=== PATIENT | female | born 1945 | race Caucasian/White ===

== ENCOUNTER → 2017-09-09 13:45 | Outpatient (CLI) | payer MEDICARE, MEDICAID, SELFPAY ==
--- NOTE | 2017-09-09 14:00 | ECHOD_ITS ---
Reason For Study: SOB, HOCM Procedure This was a 2D Doppler, Color Flow transthoracic echocardiogram. The exam was of adequate technical quality. Exam performed in department. Left Ventricle Normal LV size. Severe concentric left ventricular hypertrophy. Left ventricular systolic function is hyperdynamic. The estimated ejection fraction is 70 %. No regional wall motion abnormalities noted. Right Ventricle Normal RV size. Normal systolic function. Atria The left atrium is moderately enlarged. Normal right atrium. No doppler evidence for ASD. Mitral Valve There is mild mitral annular calcification. Mild diffuse mitral valve thickening. Systolic anterior motion of the mitral valve. Mild (1+) mitral valve insufficiency. Tricuspid Valve Normal tricuspid valve. Trivial tricuspid valve insufficiency. Right ventricular systolic pressure estimated to be 76 mmHg. Aortic Valve Trisinus/trileaflet aortic valve. Mild diffuse aortic valve thickening. Mild focal aortic valve calcification. Pulmonic Valve The pulmonic valve is not well visualized. Mild (1+) pulmonic valve insufficiency. Great Vessels Normal sized aortic root. Pericardium/Pleural No pericardial effusion. MMode/2D Measurements & Calculations LVIDd: 3.4 cm IVSd: 2.8 cm Ao root diam: 2.7 cm LVIDs: 1.6 cm LVPWd: 2.3 cm LA dimension: 6.5 cm RVDd: 3.0 cm FS: 54.1 % LAV(MOD-bp): 138.2 ml LA A4 area: 36.2 cm2 RA A4 area: 17.5 cm2 LAV(MOD-bp) Indexed: 68.3 ml/m2 LAV(MOD-sp2): 115.5 ml LAV(MOD-sp4): 159.4 ml Doppler Measurements & Calculations MV E max semaj: 126.2 cm/sec Lat Peak E' Semaj: 9.2 cm/sec Med Peak E' Semaj: 5.4 cm/sec E/E' lat: 13.8 E/E' med: 23.3 Ao V2 max: 172.4 cm/sec PA V2 max: 92.3 cm/sec TR max semaj: 420.1 cm/sec Ao max P.9 mmHg TR max P.1 mmHg Interpretation Summary Left ventricular systolic function is hyperdynamic. The estimated ejection fraction is 70 %. Severe concentric left ventricular hypertrophy. The left atrium is moderately enlarged. There is mild mitral annular calcification. Mild diffuse mitral valve thickening. Systolic anterior motion of the mitral valve. Mild (1+) mitral valve insufficiency. Trivial tricuspid valve insufficiency. Mild diffuse aortic valve thickening. Mild focal aortic valve calcification. Mild (1+) pulmonic valve insufficiency. Right ventricular systolic pressure estimated to be 76 mmHg. Comment: Color flow doppler cannot exclude a high perimembranous VSD. Ordering Physician: Tal Fuentes Referring Physician: Costa Mcleod M.D. Performed By: Saskia Goldman RDCS
== END ==
PROVIDERS: Family Provider Family Medicine; PCP Family Medicine; Visit Provider Internal Medicine Cardiovascular Disease
DX: I50.22 Chronic systolic (congestive) heart failure (principal); I42.2 Other hypertrophic cardiomyopathy
CPT/HCPCS: 93306

== ENCOUNTER → 2017-10-19 04:00 | Outpatient (REF) | payer MEDICARE, SELFPAY ==
[2017-10-19 08:01] LABS: Anion Gap 6 (5-15); BUN 23 mg/dL (7-18); BUN/Creat Ratio 26.7 RATIO (10-20); Calcium,Total 8.5 mg/dL (8.5-10.1); Chloride 106 mmol/L (98-107); Creatinine, Serum 0.86 mg/dL (0.55-1.02); EST Glomerular Filtration Rate 69 mL/min (>60); Est Glom Filt Rate - Afr Amer 84 mL/min (>60); Glucose 113 mg/dL (74-106); Potassium 4.8 mmol/L (3.5-5.1); Sodium Level 141 mmol/L (136-145)
== END ==
LOC: OLS.WCC 04:00
PROVIDERS: Visit Provider Family Medicine
DX: I50.9 Heart failure, unspecified (principal)
CPT/HCPCS: 36415; 80048; 83880

== ENCOUNTER → 2018-01-11 04:00 | Outpatient (REF) | payer MEDICARE, SELFPAY ==
[2018-01-11 07:15] LABS: Hematocrit 44.1 % (37-47); Hemoglobin 12.8 g/dl (12.0-15.0); Mean Corpuscular Hgb 24.2 pg (27.0-32.0); Mean Corpuscular Volume 83.4 fL (81-99); Mean Platelet Vol. 9.8 fl (6.2-12.0); Platelet Count 222 K/mm3 (150-450); RBC Distribution Width CV 17.5 % (11.6-14.6); RBC Distribution Width SD 53.4 fl (35.1-43.9); Red Blood Count 5.29 M/mm3 (4.2-5.4); White Blood Count 9.1 K/mm3 (4.4-11.0)
[2018-01-11 07:23] LABS: Scan Indicated on CBC? Y/N NO
[2018-01-11 07:41] LABS: BUN 28 mg/dL (7-18); BUN/Creat Ratio 27.2 RATIO (10-20); Calcium,Total 9.2 mg/dL (8.5-10.1); Carbon Dioxide > 45.0 mmol/L (21.0-32.0); Chloride 88 mmol/L (98-107); Creatinine, Serum 1.03 mg/dL (0.55-1.02); EST Glomerular Filtration Rate 56 mL/min (>60); Est Glom Filt Rate - Afr Amer 68 mL/min (>60); Glucose 126 mg/dL (74-106); Potassium 2.9 mmol/L (3.5-5.1); Sodium Level 141 mmol/L (136-145)
[2018-01-11 08:44] LABS: BNP,B-Type NATRIURETIC PEPTIDE > 5000.0 pg/mL (0-100)
== END ==
LOC: OLS.WCC 04:00
PROVIDERS: Visit Provider Family Medicine
DX: I50.9 Heart failure, unspecified (principal); R53.83 Other fatigue
CPT/HCPCS: 36415; 80048; 83880; 85027

== ENCOUNTER 2018-01-12 16:39 | Inpatient (IN) | payer MEDICARE, SELFPAY ==
[2018-01-12] VITALS (9 sets, daily range): BP systolic 107–125; BP diastolic 71–81; PULSE 86–104; RESP 18–32; TEMP 35.7–37; O2SAT 96–99; BMI 33.2; BMI 29.2
--- NOTE | 2018-01-12 16:52 | EKG12_ITS ---
Test Reason : SOB Blood Pressure : / mmHG Vent. Rate : 085 BPM Atrial Rate : 085 BPM P-R Int : 220 ms QRS Dur : 118 ms QT Int : 436 ms P-R-T Axes : 079 -41 118 degrees QTc Int : 518 ms Sinus rhythm with 1st degree A-V block Biatrial enlargement Left axis deviation Left ventricular hypertrophy with QRS widening and repolarization abnormality Prolonged QT Abnormal ECG Confirmed by ANTON CHAVIS ([id number]), proposal editor JOHN PUCKETT ([id number]) on 01/23/2018 6:27:36 PM Referred By: RAMYA Confirmed By:ANTON CHAVIS
--- NOTE | 2018-01-12 16:52 | RAD_ITS ---
STUDY: X-RAY CHEST REASON FOR EXAM: Female, 72 years old. Chest pain and shortness of breath TECHNIQUE: Single AP portable view of the chest. COMPARISON: 10/18/2015 FINDINGS: Cardiac monitoring leads overlie the chest. The lungs are underinflated. There is mild left basilar atelectasis. There is no demonstrated pleural abnormality. There is mild cardiac enlargement. Normal mediastinum and po. Normal visualized pulmonary arteries. Normal visualized aortic arch and descending thoracic aorta. Normal visualized thoracic spine. Normal visualized ribs, clavicles, and shoulders. There is no demonstrated abnormality of the visualized soft tissue structures of the upper abdomen. RAD/Chest 1 View (Portable) IMPRESSION: Low lung volumes with left basilar atelectasis. Cardiomegaly. Electronically Signed: Juancarlos Hi DO at 17:35 EDT Tel , Service support ,
[2018-01-12] MEDS: Aspirin 81 MG TAB.CHEW 324 MG PO (17:27)
[2018-01-12] MEDS: Furosemide 40 MG/4 ML Vial IV (17:32)
--- NOTE | 2018-01-12 19:06 | PCM.HP.STD ---
Problem List (1) CHF exacerbation Status: Acute Qualifiers: Heart failure type: unspecified Qualified Code(s): I50.9 - Heart failure, unspecified (2) HTN (hypertension) Status: Chronic Qualifiers: Hypertension type: essential hypertension Qualified Code(s): I10 - Essential (primary) hypertension (3) Obesity (BMI 30.0-34.9) Status: Chronic (4) Chronic systolic congestive heart failure Status: Chronic (5) CVA (cerebral vascular accident) Status: Chronic Qualifiers: CVA mechanism: unspecified Qualified Code(s): I63.9 - Cerebral infarction, unspecified (6) LBBB (left bundle branch block) Status: Chronic (7) Hypertrophic cardiomyopathy Status: Chronic History of Present Illness Date of Admission: 01/12/18 Chief Complaint: Short of breath, sent per Cardiology for CHF Exacerbation The patient is a 72 y/o F w/ PMHx: Schizophrenia/Bipolar Disorder, Prior CVA L frontal lobe, CHF Unclear Type, Hypertrophic Cardiomyopathy-Obstructive Type, Known LLLB, History of Known Pulmonary Lung Nodule 1.6 cm RUL, Obesity who presents from the [facility] to the [facility] ED on 01/12/18 per recommendation of her Housekeeping Lead, Dr. Fuentes whom she saw earlier in the day with ongoing dyspnea and BL LE edema w/ noted outpatient attempts per Dr. Mcleod to adjust her diuretic which has not been successful. She notes increased fatigue and oxygen needs at facility which she has not required prior. She did have outpatient recent DVT ultrasound studies of her bilateral lower extremities secondary to ongoing severe edema and these were noted to be negative for acute DVT. In the ED work-up included T 96.2, HR 86, BP 125/71, RR 18, 99% on RA, CBC w/ WBC 9.1, Hgb 12.8, Plts 222, BMP w/ K 2.9, Chl 88, CO2 >45, BUN/Cr 28/1.03, glucose 126, BNP >5,000, troponin 0.252, EKG w/ sinus rhythm w/ LVH w/ repolarization changes and QT 518 similar to prior, CXR w/ low lung volumes with left basilar atelectasis. In the emergency room patient administered aspirin, Lasix 40 mg IV ?1, potassium 40 mg 1 p.o. ?1. Past Medical History Past Medical History (Chronic Problems): Chronic Problems (Last Updated 01/12/18 @ 16:49 by NINA Bar) HTN (hypertension) (Chronic) Obesity (BMI 30.0-34.9) (Chronic) Chronic systolic congestive heart failure (Chronic) CVA (cerebral vascular accident) (Chronic) LBBB (left bundle branch block) (Chronic) Hypertrophic cardiomyopathy (Chronic) Medical History: Medical History (Last Updated 01/12/18 @ 16:49 by NINA Bar) Chronic systolic congestive heart failure (Chronic) I50.22 CVA (cerebral vascular accident) (Chronic) I63.9 LBBB (left bundle branch block) (Chronic) I44.7 Hypertrophic cardiomyopathy (Chronic) I42.2 Pulmonary nodule R91.1 RUL Schizophrenia F20.9 Allergies No Known Allergies Allergy (Verified 01/12/18 16:41) Home Medications: Ambulatory Orders Medication Instructions Recorded Aspirin E.C. [Ecotrin] 81 mg PO DAILY@0800 #30 tab 01/09/15 asenapine 5 mg sublingual tablet 5 mg SUBLINGUAL QHS tab 08/26/17 metoprolol tartrate 100 mg tablet 100 mg PO BID 08/26/17 verapamil 40 mg tablet 60 mg PO TID tab 08/26/17 Albuterol Aerosols [Ventolin 2.5 mg INHALATION BID PRN PRN 01/12/18 Aerosols] Asenapine Maleate [Saphris] 5 mg SL QHS 01/12/18 furosemide 40 mg tablet 80 mg PO DAILY tab 01/12/18 metolazone 2.5 mg tablet 2.5 mg PO QODAY 01/12/18 potassium chloride ER 20 mEq 20 meq PO DAILY 01/12/18 tablet,extended release(part/cryst) spironolactone 25 mg tablet 25 mg PO DAILY 01/12/18 Surgical History: Surgical History (Last Reviewed 01/12/18 @ 15:36 by Ester Grossman) History of tonsillectomy Z98.890, Z90.89 Surgical History: tonsillectomy Psychiatric History: Anxiety, Depression, Schizophrenia 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 Denies: Chills, Fever HEENT: Denies: Head Aches, Sinus Congestion, Sinus Drainage Cardiovascular: Reports: Orthopnea. Denies: Chest Pain, Palpitations Respiratory: Reports: Shortness of breath upon exertion. Denies: Cough, Shortness of breath at rest, Sputum production Gastrointestinal: Denies: Abdominal Pain, Nausea, Vomiting Genitourinary: Denies: Dysuria Musculoskeletal: Denies: Joint Pain, Joint Tenderness Skin: Reports: Skin Changes. Denies: Rash, Wounds Neurological: Denies: Numbness, Tingling, Focal weakness Psychiatric: Reports: Anxiety, Depression. Denies: Homicidal Ideations, Suicidal Ideations Hematologic/ Lymphatic: Denies: Easy Bruising, Easy Bleeding VTE Information - Inpt Only VTE Present on Admission: No VTE Mechan Device Prophylaxis: SCD's VTE Pharm Prophylaxis ordered?: Yes Patient Problems: Active and Suspected Problems (Last Updated 01/12/18 @ 16:49 by NINA Bar) CHF exacerbation (Acute) Subjective: Seated upright in the ED bed, no acute distress, denies any current chest discomfort or market dyspnea. Objective: Physical Examination: General: awake, alert, oriented x 3 including self, place, recent events and cooperative, seated upright in bed in no apparent distress. Skin: normal color, turgor, no icterus, cyanosis except noted bilateral lower extremity chronic venous skin changes. HEENT: AT/NC, EOMI, PERRLA, MMM, no carotid bruits, + JVD noted. Lungs: Diminished bilaterally, greater bases, mild rales, mild effort, no wheezing. Heart: Regular rate and rhythm; no gallop, rub audible, HSM present. Abdomen: soft, NTTP, ND, normal BS, no HSM. Extremities: no cyanosis, clubbing, BL LE foot to proximal knee 2+ edema, TTP. Neurological: patient awake, alert, oriented x 3; cognitive function baseline intact; does have notable psychiatric diseases; pupils equally reactive to light and accomodation; cranial nerves II-XII grossly normal, moving all 4 extremities, no focal deficits, strength moderately globally decreased secondary to acute presentation. Psychiatric: affect appears mildly flat, no acute evidence of depressive or anxiety feelings. - Physical Exam Vital Signs Temp Pulse Resp BP Pulse Ox 96.2 F L 89 20 H 121/81 H 97 01/12/18 16:41 01/12/18 18:23 01/12/18 18:23 01/12/18 18:23 01/12/18 18:23 Oxygen Flow Rate (L/min) 3 Oxygen Delivery Method Nasal Cannula Weight: 212 lb 1.355 oz Body Mass Index (BMI) 33.2 Laboratory Tests Past 24 Hrs 01/12/18 17:23 Troponin I 0.252 H Assessment/Plan All Active Problems (Last Updated 01/12/18 @ 16:49 by NINA Bar) CHF exacerbation (Acute) TARAH (acute kidney injury) (Resolved) The patient is a 72 y/o F w/ PMHx: Schizophrenia/Bipolar Disorder, Prior CVA L frontal lobe, CHF Unclear Type, Hypertrophic Cardiomyopathy-Obstructive Type, Known LLLB, History of Known Pulmonary Lung Nodule 1.6 cm RUL, Obesity who presents from the [facility] to the [facility] ED on 01/12/18 per recommendation of her Housekeeping Lead, Dr. Fuentes whom she saw earlier in the day with ongoing dyspnea and BL LE edema w/ noted outpatient attempts per Dr. Mcleod to adjust her diuretic which has not been successful. (1) Acute Decompensated CHF, Unclear Type w/ Hypertrophic Cardiomyopathy-Obstructive Type w/ Elevated Cardiac Troponin: CXR w/ low lung volumes with left basilar atelectasis. Patient administered IV lasix in the ED, will admit to PCU, maintain on cardiac telemetry obtain cardiac enzyme series, obtain serial EKGs, continue IV lasix diuresis w/ 40 mg BID, recent outpatient DVT BL LE studies, monitor I/Os, maintain on intake restriction, continue medical therapy w/ asa, verapamil, spironolactone, metolazone. Not on ACEI or statin. Will obtain TSH and magnesium level. Most recent ECHO noted 2015 w/ findings consistent with hypertrophic cardia myopathy, EF 65%, LVOT dynamic gradient 7 mill per second, severe hypertrophy of the right ventricle, mildly enlarged LA, systolic anterior motion of mitral valve, mild to moderate MV insufficiency, no indication of cardiac tamponade, trivial pericardial effusion, possible right to left shunt through possible VSD under the aortic valve, intracavitary gradient appears the same, possible small VSD located just under aortic valve with evidence of right to left shunting. Repeat echo ordered. Cardiology consulted, pending. PRN morphine to decrease afterload, continue oxygen supplementation, if necessary will position w/ upright position with legs off bed to decrease preload. In the ED patient administered aspirin, Lasix 40 mg IV ?1 and potassium 40 mg 1 p.o. ?1. (2) Hypokalemia: Admission K+ 2.9, given supplementation in the ED, repeat BMP in AM. Mag pending. (2) Schizophrenia/Bipolar Disorder: Maintain on home regimen saphris. Per records and prior visit has been resistant to treatment. (3) Prior CVA L frontal lobe: Maintain on asa, not on statin, continue BP regimen, mild hyperglycemia, pending HgBA1c. (4) History of Known Pulmonary Lung Nodule: 2017 CT chest w/ 1.6 cm RUL. (5) Obesity: Weight loss and lifestyle changes encouraged. (6) Hyperglycemia: Admission glucose 126, HgBA1c requested. (7) DVT Prophylaxis: SCDs, lovenox. (8) CODE status: Discussed CODE status at length including difference between FULL code, DNR-CCA and DNR-CC status. Patient does have guardian in place, reviewed SNF paperwork and confirmed DNR-CCA, no intubation status. Advanced Care Planning Face to Face Time: 18 minutes. Code Visit Inpatient E&M: 73866 Init Hosp L3 Procedures: 97492 Advncd Care Plan 30 Min
--- NOTE | 2018-01-12 19:18 | HP.PCM_ITS ---
Problem List (1) CHF exacerbation Status: Acute Qualifiers: Heart failure type: unspecified Qualified Code(s): I50.9 - Heart failure, unspecified (2) HTN (hypertension) Status: Chronic Qualifiers: Hypertension type: essential hypertension Qualified Code(s): I10 - Essential (primary) hypertension (3) Obesity (BMI 30.0-34.9) Status: Chronic (4) Chronic systolic congestive heart failure Status: Chronic (5) CVA (cerebral vascular accident) Status: Chronic Qualifiers: CVA mechanism: unspecified Qualified Code(s): I63.9 - Cerebral infarction, unspecified (6) LBBB (left bundle branch block) Status: Chronic (7) Hypertrophic cardiomyopathy Status: Chronic History of Present Illness Date of Admission: 01/12/18 Chief Complaint: Short of breath, sent per Cardiology for CHF Exacerbation The patient is a 72 y/o F w/ PMHx: Schizophrenia/Bipolar Disorder, Prior CVA L frontal lobe, CHF Unclear Type, Hypertrophic Cardiomyopathy-Obstructive Type, Known LLLB, History of Known Pulmonary Lung Nodule 1.6 cm RUL, Obesity who presents from the [facility] to the [facility] ED on 01/12/18 per recommendation of her Embossing Unit Operator, Dr. Fuentes whom she saw earlier in the day with ongoing dyspnea and BL LE edema w/ noted outpatient attempts per Dr. Mcleod to adjust her diuretic which has not been successful. She notes increased fatigue and oxygen needs at facility which she has not required prior. She did have outpatient recent DVT ultrasound studies of her bilateral lower extremities secondary to ongoing severe edema and these were noted to be negative for acute DVT. In the ED work-up included T 96.2, HR 86, BP 125/71, RR 18, 99% on RA, CBC w/ WBC 9.1, Hgb 12.8, Plts 222, BMP w/ K 2.9, Chl 88, CO2 >45 , BUN/Cr 28/1.03, glucose 126, BNP >5,000, troponin 0.252, EKG w/ sinus rhythm w / LVH w/ repolarization changes and QT 518 similar to prior, CXR w/ low lung volumes with left basilar atelectasis. In the emergency room patient administered aspirin, Lasix 40 mg IV ?1, potassium 40 mg 1 p.o. ?1. Past Medical History Past Medical History (Chronic Problems): Chronic Problems (Last Updated 01/12/18 @ 16:49 by NINA Bar) HTN (hypertension) (Chronic) Obesity (BMI 30.0-34.9) (Chronic) Chronic systolic congestive heart failure (Chronic) CVA (cerebral vascular accident) (Chronic) LBBB (left bundle branch block) (Chronic) Hypertrophic cardiomyopathy (Chronic) Medical History: Medical History (Last Updated 01/12/18 @ 16:49 by NINA Bar) Chronic systolic congestive heart failure (Chronic) I50.22 CVA (cerebral vascular accident) (Chronic) I63.9 LBBB (left bundle branch block) (Chronic) I44.7 Hypertrophic cardiomyopathy (Chronic) I42.2 Pulmonary nodule R91.1 RUL Schizophrenia F20.9 Allergies No Known Allergies Allergy (Verified 01/12/18 16:41) Home Medications: Ambulatory Orders Medication Instructions Recorded Aspirin E.C. [Ecotrin] 81 mg PO DAILY@0800 #30 tab 01/09/15 asenapine 5 mg sublingual tablet 5 mg SUBLINGUAL QHS tab 08/26/17 metoprolol tartrate 100 mg tablet 100 mg PO BID 08/26/17 verapamil 40 mg tablet 60 mg PO TID tab 08/26/17 Albuterol Aerosols [Ventolin 2.5 mg INHALATION BID PRN PRN 01/12/18 Aerosols] Asenapine Maleate [Saphris] 5 mg SL QHS 01/12/18 furosemide 40 mg tablet 80 mg PO DAILY tab 01/12/18 metolazone 2.5 mg tablet 2.5 mg PO QODAY 01/12/18 potassium chloride ER 20 mEq 20 meq PO DAILY 01/12/18 tablet,extended release(part/cryst) spironolactone 25 mg tablet 25 mg PO DAILY 01/12/18 Surgical History: Surgical History (Last Reviewed 01/12/18 @ 15:36 by Ester Grossman) History of tonsillectomy Z98.890, Z90.89 Surgical History: tonsillectomy Psychiatric History: Anxiety, Depression, Schizophrenia 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 Denies: Chills, Fever HEENT: Denies: Head Aches, Sinus Congestion, Sinus Drainage Cardiovascular: Reports: Orthopnea. Denies: Chest Pain, Palpitations Respiratory: Reports: Shortness of breath upon exertion. Denies: Cough, Shortness of breath at rest, Sputum production Gastrointestinal: Denies: Abdominal Pain, Nausea, Vomiting Genitourinary: Denies: Dysuria Musculoskeletal: Denies: Joint Pain, Joint Tenderness Skin: Reports: Skin Changes. Denies: Rash, Wounds Neurological: Denies: Numbness, Tingling, Focal weakness Psychiatric: Reports: Anxiety, Depression. Denies: Homicidal Ideations, Suicidal Ideations Hematologic/ Lymphatic: Denies: Easy Bruising, Easy Bleeding VTE Information - Inpt Only VTE Present on Admission: No VTE Mechan Device Prophylaxis: SCD's VTE Pharm Prophylaxis ordered?: Yes Patient Problems: Active and Suspected Problems (Last Updated 01/12/18 @ 16:49 by NINA Bar) CHF exacerbation (Acute) Subjective: Seated upright in the ED bed, no acute distress, denies any current chest discomfort or market dyspnea. Objective: Physical Examination: General: awake, alert, oriented x 3 including self, place, recent events and cooperative, seated upright in bed in no apparent distress. Skin: normal color, turgor, no icterus, cyanosis except noted bilateral lower extremity chronic venous skin changes. HEENT: AT/NC, EOMI, PERRLA, MMM, no carotid bruits, + JVD noted. Lungs: Diminished bilaterally, greater bases, mild rales, mild effort, no wheezing. Heart: Regular rate and rhythm; no gallop, rub audible, HSM present. Abdomen: soft, NTTP, ND, normal BS, no HSM. Extremities: no cyanosis, clubbing, BL LE foot to proximal knee 2+ edema, TTP. Neurological: patient awake, alert, oriented x 3; cognitive function baseline intact; does have notable psychiatric diseases; pupils equally reactive to light and accomodation; cranial nerves II-XII grossly normal, moving all 4 extremities, no focal deficits, strength moderately globally decreased secondary to acute presentation. Psychiatric: affect appears mildly flat, no acute evidence of depressive or anxiety feelings. - Physical Exam Vital Signs Temp Pulse Resp BP Pulse Ox 96.2 F L 89 20 H 121/81 H 97 01/12/18 16:41 01/12/18 18:23 01/12/18 18:23 01/12/18 18:23 01/12/18 18:23 Oxygen Flow Rate (L/min) 3 Oxygen Delivery Method Nasal Cannula Weight: 212 lb 1.355 oz Body Mass Index (BMI) 33.2 Laboratory Tests Past 24 Hrs 01/12/18 17:23 Troponin I 0.252 H Assessment/Plan All Active Problems (Last Updated 01/12/18 @ 16:49 by NINA Bar) CHF exacerbation (Acute) TARAH (acute kidney injury) (Resolved) The patient is a 72 y/o F w/ PMHx: Schizophrenia/Bipolar Disorder, Prior CVA L frontal lobe, CHF Unclear Type, Hypertrophic Cardiomyopathy-Obstructive Type, Known LLLB, History of Known Pulmonary Lung Nodule 1.6 cm RUL, Obesity who presents from the [facility] to the [facility] ED on 01/12/18 per recommendation of her Embossing Unit Operator, Dr. Fuentes whom she saw earlier in the day with ongoing dyspnea and BL LE edema w/ noted outpatient attempts per Dr. Mcleod to adjust her diuretic which has not been successful. (1) Acute Decompensated CHF, Unclear Type w/ Hypertrophic Cardiomyopathy- Obstructive Type w/ Elevated Cardiac Troponin: CXR w/ low lung volumes with left basilar atelectasis. Patient administered IV lasix in the ED, will admit to PCU, maintain on cardiac telemetry obtain cardiac enzyme series, obtain serial EKGs, continue IV lasix diuresis w/ 40 mg BID, recent outpatient DVT BL LE studies, monitor I/Os, maintain on intake restriction, continue medical therapy w/ asa, verapamil, spironolactone, metolazone. Not on ACEI or statin. Will obtain TSH and magnesium level. Most recent ECHO noted 2015 w/ findings consistent with hypertrophic cardia myopathy, EF 65%, LVOT dynamic gradient 7 mill per second, severe hypertrophy of the right ventricle, mildly enlarged LA, systolic anterior motion of mitral valve, mild to moderate MV insufficiency, no indication of cardiac tamponade, trivial pericardial effusion, possible right to left shunt through possible VSD under the aortic valve, intracavitary gradient appears the same, possible small VSD located just under aortic valve with evidence of right to left shunting. Repeat echo ordered. Cardiology consulted, pending. PRN morphine to decrease afterload, continue oxygen supplementation, if necessary will position w/ upright position with legs off bed to decrease preload. In the ED patient administered aspirin, Lasix 40 mg IV ?1 and potassium 40 mg 1 p.o. ?1. (2) Hypokalemia: Admission K+ 2.9, given supplementation in the ED, repeat BMP in AM. Mag pending. (2) Schizophrenia/Bipolar Disorder: Maintain on home regimen saphris. Per records and prior visit has been resistant to treatment. (3) Prior CVA L frontal lobe: Maintain on asa, not on statin, continue BP regimen, mild hyperglycemia, pending HgBA1c. (4) History of Known Pulmonary Lung Nodule: 2017 CT chest w/ 1.6 cm RUL. (5) Obesity: Weight loss and lifestyle changes encouraged. (6) Hyperglycemia: Admission glucose 126, HgBA1c requested. (7) DVT Prophylaxis: SCDs, lovenox. (8) CODE status: Discussed CODE status at length including difference between FULL code, DNR-CCA and DNR-CC status. Patient does have guardian in place, reviewed SNF paperwork and confirmed DNR-CCA, no intubation status. Advanced Care Planning Face to Face Time: 18 minutes. Code Visit Inpatient E&M: 73482 Init Hosp L3 Procedures: 77721 Advncd Care Plan 30 Min
--- NOTE | 2018-01-12 19:54 | ED.VISSUMM ---
- ER Visit Summary Date of Service: 01/12/18 Chief Complaint: CHF History of Present Illness: The patient is a [address] Costa Mcleod and Dr. Fuentes. She is a poor informant. Looking at the custodial notes it appears as though the patient is been being diuresed over the course of weeks there and this has been unsuccessful. Patient reports that she has a cough is productive yellow sputum without any blood. She denies any fever, chills, or chest pain. I am unable to get any other reliable information from her. Reviewing the custodial notes shows that the patient typically was on 20 mg of Lasix every morning and 40 mg every afternoon. On December 23 this was increased to 40 every morning and 80 every afternoon. On January 02 she had spironolactone 25 mg every morning added. On January 06 she had Zaroxolyn 2.5 mg daily added. Physical Examination: Vitals: 6.2, 120/71, 86, 18, 99% on room air which is not hypoxic. General: Well-nourished and well-developed. Head: Normocephalic atraumatic. Neck: Supple, no lymphadenopathy. No JVD. Nontender. Cardiovascular: Regular rate and rhythm. 3 out of 6 systolic murmur. Respiratory: No respiratory distress. Clear to auscultation bilaterally. Poor respiratory effort. Abdominal: Soft, nontender, nondistended, normal bowel sounds. No guarding, rebound, or peritoneal signs. Back: Nontender. Extremities: Nontender, 3+ pitting edema lower extremes bilaterally. Skin: Normal color, no rash. Neurologic: Alert and oriented ?3. Cranial nerves II through XII are intact. Normal strength and sensation. Psych: Normal affect. Test Results: EKG is sinus at 85. LVH with repolarization changes. QTc is 518. CBC is normal. Chem-7 is marked potassium 2.9, chloride of 88, CO2 greater than 45, BUN 28, creatinine 1.03, glucose 126. Troponin is 0.252. PT HATCHERY HELPER was greater than 5000. Patient had bilateral lower extreme Dopplers January 10 that were negative. Chest x-ray shows cardiomegaly and atelectasis. Emergency Department Course and Treatment: Patient was given K-Dur p.o., aspirin p.o., and 40 mg of Lasix IV. Treatment Plan: Patient was discussed with Dr. Mcgee and Dr. Miner. She will be admitted to the hospital for further relation and treatment. Disposition: Admitted in serious condition. Impression: 1. CHF. 2. Indeterminate troponin. This note was generated with [employer] MXR dictation software. It may contain incorrect words, spelling, and punctuation that were not noted in review of the chart prior to signing ED Disposition - Plan for ED Patient: Chief Complaint: Shortness of Breath Referrals: Costa Mcleod MD [Primary Care Provider] -
--- NOTE | 2018-01-12 19:57 | ED.DCSUM_ITS ---
- ER Visit Summary Date of Service: 01/12/18 Chief Complaint: CHF History of Present Illness: The patient is a [address] Costa Mcleod and Dr. Fuentes. She is a poor informant. Looking at the alf notes it appears as though the patient is been being diuresed over the course of weeks there and this has been unsuccessful. Patient reports that she has a cough is productive yellow sputum without any blood. She denies any fever, chills, or chest pain. I am unable to get any other reliable information from her. Reviewing the alf notes shows that the patient typically was on 20 mg of Lasix every morning and 40 mg every afternoon. On December 23 this was increased to 40 every morning and 80 every afternoon. On January 02 she had spironolactone 25 mg every morning added. On January 06 she had Zaroxolyn 2.5 mg daily added. Physical Examination: Vitals: 6.2, 120/71, 86, 18, 99% on room air which is not hypoxic. General: Well-nourished and well-developed. Head: Normocephalic atraumatic. Neck: Supple, no lymphadenopathy. No JVD. Nontender. Cardiovascular: Regular rate and rhythm. 3 out of 6 systolic murmur. Respiratory: No respiratory distress. Clear to auscultation bilaterally. Poor respiratory effort. Abdominal: Soft, nontender, nondistended, normal bowel sounds. No guarding, rebound, or peritoneal signs. Back: Nontender. Extremities: Nontender, 3+ pitting edema lower extremes bilaterally. Skin: Normal color, no rash. Neurologic: Alert and oriented ?3. Cranial nerves II through XII are intact. Normal strength and sensation. Psych: Normal affect. Test Results: EKG is sinus at 85. LVH with repolarization changes. QTc is 518. CBC is normal. Chem-7 is marked potassium 2.9, chloride of 88, CO2 greater than 45, BUN 28, creatinine 1.03, glucose 126. Troponin is 0.252. PT SEPTIC PUMP TRUCK DRIVER was greater than 5000. Patient had bilateral lower extreme Dopplers January 10 that were negative. Chest x-ray shows cardiomegaly and atelectasis. Emergency Department Course and Treatment: Patient was given K-Dur p.o., aspirin p.o., and 40 mg of Lasix IV. Treatment Plan: Patient was discussed with Dr. Mcgee and Dr. Miner. She will be admitted to the hospital for further relation and treatment. Disposition: Admitted in serious condition. Impression: 1. CHF. 2. Indeterminate troponin. This note was generated with Test[employer] dictation software. It may contain incorrect words, spelling, and punctuation that were not noted in review of the chart prior to signing ED Disposition - Plan for ED Patient: Chief Complaint: Shortness of Breath Referrals: Costa Mcleod MD [Primary Care Provider] -
--- NOTE | 2018-01-12 20:24 | ECHOD_ITS ---
Version 2 Reason For Study: CHF Procedure This was a 2D Doppler, Color Flow transthoracic echocardiogram. Exam performed portable in patient room. Left Ventricle Severe concentric left ventricular hypertrophy. The estimated ejection fraction is 75 %. Stage 2 diastolic dysfunction. No regional wall motion abnormalities noted. Right Ventricle Normal size and thickness. Normal systolic function. Atria The left atrium is severely enlarged. The right atrium is mildly enlarged. Normal atrial septum. Mitral Valve Mild focal mitral valve thickening. Systolic anterior motion of the mitral valve. Mild-Moderate (1- 2+) posteriorly directed mitral valve insufficiency. Tricuspid Valve Normal tricuspid valve. Trivial tricuspid valve insufficiency. Right ventricular systolic pressure estimated to be 109 mmHg. Aortic Valve Trisinus/trileaflet aortic valve. Pulmonic Valve Normal pulmonic valve. Trivial pulmonic valve insufficiency. Great Vessels Normal aortic root. Normal arch. Normal inferior vena cava. Inferior vena cava collapse with sniff. Pericardium/Pleural No pericardial effusion. MMode/2D Measurements & Calculations LVIDd: 3.6 cm IVSd: 1.9 cm Ao root diam: 2.8 cm LVIDs: 2.7 cm LVPWd: 1.9 cm LA dimension: 5.2 cm RVDd: 3.0 cm FS: 25.1 % LAV(MOD-bp): 130.1 ml RVOT diam: 1.8 cm LA A4 area: 33.9 cm2 LAV(MOD-bp) Indexed: 66.4 ml/m2 LAV(MOD-sp2): 123.5 ml LAV(MOD-sp4): 137.5 ml RA A4 area: 23.1 cm2 Doppler Measurements & Calculations Lat Peak E' Semaj: 7.9 cm/sec Med Peak E' Semaj: 5.7 cm/sec Ao V2 max: 537.8 cm/sec Ao max P.0 mmHg Ao V2 mean: 396.4 cm/sec Ao mean P.3 mmHg Ao V2 VTI: 121.9 cm PA V2 max: 101.2 cm/sec TR max semaj: 522.5 cm/sec TR max P.2 mmHg Interpretation Summary Severe concentric left ventricular hypertrophy. The estimated ejection fraction is 75 %. Stage 2 diastolic dysfunction. The left atrium is severely enlarged. Mild-Moderate (1-2+) posteriorly directed mitral valve insufficiency. Systolic anterior motion of the mitral valve. Trivial tricuspid valve insufficiency. Cannot exclude high perimembranous VSD. Right ventricular systolic pressure estimated to be 109 mmHg. Compared to previous echo dated 09/09/2017, no appreciable changes noted. RVSP was 76 at that time, and has now increased to 109 mm Hg. Ordering Physician: Vandana Miner Referring Physician: AZRA PUCKETT Performed By: Karly Mota RDCS, RVT
[2018-01-12 21:07] LABS: Thyroid Stim Hormone (TSH) 0.65 uIU/mL (0.358-3.74)
[2018-01-12 21:20] LABS: Hemoglobin A1c 7.1 % (4.2-6.3)
[2018-01-12] MEDS: Verapamil 120 MG Tablet 60 MG PO (22:43)
[2018-01-12] MEDS: guaiFENesin 10 ML UDC (200MG/10ML) PO (22:43)
[2018-01-12] MEDS: Famotidine 20 MG Tablet PO (22:44)
[2018-01-12] MEDS: Metoprolol Tartrate 100 MG Tablet PO (22:44)
[2018-01-13] VITALS (15 sets, daily range): BP systolic 100–126; BP diastolic 56–77; PULSE 78–94; RESP 16–20; TEMP 36.2–37.2; O2SAT 94–97
[2018-01-13 03:28] LABS: Hematocrit 44.1 % (37-47); Mean Corp Hgb Conc 29.5 g/gl (32-36); Mean Corpuscular Hgb 24.6 pg (27.0-32.0); Mean Corpuscular Volume 83.4 fL (81-99); Mean Platelet Vol. 10.4 fl (6.2-12.0); Platelet Count 225 K/mm3 (150-450); RBC Distribution Width SD 54.6 fl (35.1-43.9); Red Blood Count 5.29 M/mm3 (4.2-5.4); White Blood Count 10.5 K/mm3 (4.4-11.0)
[2018-01-13 03:29] LABS: Scan Indicated on CBC? Y/N NO
[2018-01-13 03:49] LABS: BUN 30 mg/dL (7-18); BUN/Creat Ratio 29.1 RATIO (10-20); Calcium,Total 9.3 mg/dL (8.5-10.1); Carbon Dioxide > 45.0 mmol/L (21.0-32.0); Chloride 85 mmol/L (98-107); Cholesterol 126 mg/dL (200); Creatinine, Serum 1.03 mg/dL (0.55-1.02); EST Glomerular Filtration Rate 56 mL/min (>60); Est Glom Filt Rate - Afr Amer 68 mL/min (>60); Estimated Creatinine Clearance 49.42 ml/min; Glucose 141 mg/dL (74-106); High Density Lipoprotein 39 mg/dL; Potassium 3.4 mmol/L (3.5-5.1); Sodium Level 139 mmol/L (136-145); Triglycerides 164 mg/dL; Very Low Density Lipoprotein 33 mg/dL (5-40)
[2018-01-13] MEDS: Verapamil 120 MG Tablet 60 MG PO ×3 (05:54→22:24)
--- NOTE | 2018-01-13 06:34 | PN_ITS ---
Patient Problems: Active and Suspected Problems (Last Updated 01/12/18 @ 16:49 by NINA Bar) CHF exacerbation (Acute) Subjective: Patient is a 72-year-old female with a past medical history of schizophrenia/ bipolar disorder, prior left frontal lobe CVA, congestive heart failure, hypertrophic cardiomyopathy-obstructive type, right upper lobe pulmonary lung nodule measuring 1.6 cm, known left middle branch block and obesity who was sent to the [facility] ED from [facility] on 01/12/2018 with progressive shortness of breath and bilateral lower extremity edema. She had been requiring oxygen at the [facility] and she had not previously been on oxygen. Recent venous ultrasounds of the lower extremities was negative for DVT. Vital signs in the emergency room were temperature 96.2, heart rate 86, blood pressure 125/71, respiratory rate 18 and she was 99% saturated on room air. Potassium was low at 3.4 and the serum bicarb was greater than 45. BUN was 30 and the creatinine was 1.03. Creatinine over the past 12 months has ranged from 0.86-1.02. Glucose was 141 and hemoglobin A1c was 7.1. BNP on 01/11/2018 was greater than 5000. Initial troponin was 0.252 and the second troponin was 0.245. TSH was normal at 0.65. The chest x-ray showed a poor inspiratory effort with possible left basilar pneumonia versus atelectasis, ? R perihilar infiltrate vs CHF, and increased vascular markings. EKG showed normal sinus rhythm with left ventricular hypertrophy and a prolonged QT interval at 518 ms. She was given ASA, a potassium supplement and Lasix 40 mg IV in the ER admitted to a monitored bed on the progressive care unit. She is on Lasix, metolazone and Spironolactone as an outpatient. She has had only 150 cc urine overnight despite the Lasix 40 mg. Current vital signs are temp 98.3, pulse rate 89, blood pressure 109/65, respiratory rate 18 and she is 96% saturated on a 3 L nasal cannula. She was 99 % on room air at admission. An ABG done on a 4 L nasal cannula shows a pH of 7.53, PCO2 of 72 and a PO2 of 76. The fourth troponin is increased at 0.33. BNP is 4484. Hemoglobin A1c is 7.1%. - Physical Exam General: Alert, Oriented x3, Cooperative, No apparent distress, - - speaks slowly and softly. HEENT: Atraumatic, PERRLA, EOMI, Normocephalic Oral: No Gingival or Mucosal Lesions/ Ulcerations, Dry Mucosa Neck: Supple, No JVD, Trachea Midline Lungs: Clear to auscultation, No rhonchi, No wheeze, No rales Cardiovascular: Regular rate, Regular Rhythm, No Ectopic Activity, Murmur - systolic MM at the LLSB and the LVOT, 3/6 with no thrill, it is holosystolic. No MM at the second RICS., No rub noted, No Gallop Abdomen: Bowel Sounds Present, Soft, Non Tender, Non-Distended Extremities: No clubbing, No cyanosis, No edema Skin: No rashes, No breakdown Neurological: Cranial nerves II-XII grossly intact, Neuro grossly intact Psych/Mental Status: Normal Affect, Appropriate Vital Signs Temp Pulse Resp BP Pulse Ox 97.2 F L 85 18 108/77 96 01/13/18 02:40 01/13/18 03:00 01/13/18 02:40 01/13/18 02:40 01/13/18 02:40 Oxygen Flow Rate (L/min) 4 Oxygen Delivery Method Nasal Cannula Weight: 186 lb 11.704 oz Body Mass Index (BMI) 29.2 Intake and Output for Last 24 Hours 01/11/18 01/12/18 01/13/18 23:59 23:59 23:59 Output Total 150 / 150 Balance -150 / -150 Laboratory Tests Past 24 Hrs 01/13/18 01/13/18 01/13/18 03:15 03:15 03:15 WBC 10.5 RBC 5.29 Hgb 13.0 Hct 44.1 MCV 83.4 MCH 24.6 L MCHC 29.5 L RDW 18.0 H RDW Differential 54.6 H Plt Count 225 MPV 10.4 Sodium 139 Potassium 3.4 L Chloride 85 L Carbon Dioxide > 45.0 H* Anion Gap TNP BUN 30 H Creatinine 1.03 H Estim Creat Clear Calc 49.42 Est GFR (MDRD) Af Amer 68 Est GFR (MDRD) Non-Af 56 L BUN/Creatinine Ratio 29.1 H Glucose 141 H Calcium 9.3 Troponin I 0.245 H Triglycerides 164 Cholesterol 126 LDL Cholesterol 54 VLDL Cholesterol 33 HDL Cholesterol 39 L Medical Necessity - Tobacco Use Smoking Status: Never smoker Tobacco Use: Non-smoker Assessment/Plan All Active Problems (Last Updated 01/12/18 @ 16:49 by NINA Bar) CHF exacerbation (Acute) TARAH (acute kidney injury) (Resolved) Impressions 1. hx of hypertrophic CM - being aggressively diuresed recently with Lasix, spironolactone and Metolazone. C/O SOB. The serum bicarb is > 45 and the ABG shows a PH of 7.53 and a PCO2 of 73. I suspect the metabolic alkalosis is due to IV volume depletion. The CXR is indeterminate because she did not take a good inspiration. I am concerned about the alkalosis and wonder if the perceived SOB is related to hypoventilation and in an attempt to maintain the PH WNL? If she is dry I would think the failure would be worse because she has severe LVH and a non-compliant ventricle and with decreased volume the ventricle may not perform as well. Will defer to Dr. Mcgee's expertise and continue the diuresis for now. This pt was seen independently and in conjunction with John Hanson and we have discussed the plan of care. I agree with his PE. Will recheck the Lab in the AM and possibly a ABG. Await the results of the ECHO. Code Visit Inpatient E&M: 03958 Subs Hosp L2
[2018-01-13 07:05] LABS: AST(SGOT) 37 U/L (15-37); Alanine Aminotransfer ALT/SGPT 25 U/L (13-56); Albumin, Serum 2.9 g/dL (3.2-5.0); Alkaline Phosphatase 87 U/L (45-117); Bilirubin, Direct 0.26 mg/dL (0.00-0.30); Globulin 3.8 g/dL (2.2-4.2); Protein, Total 6.7 g/dL (6.4-8.2)
[2018-01-13] MEDS: Aspirin E.C. 81 MG Tablet PO (09:15)
[2018-01-13] MEDS: Spironolactone 25 MG Tablet PO (09:15)
--- NOTE | 2018-01-13 09:15 | CASEMGMT ---
UPDATES FAXED TO MARCUS AT [facility]. PER MARCUS, PATIENT CAN RETURN TO FACILITY PRIOR TO PRE-CERT BEING OBTAINED. WILL UPDATE MARCUS IF D/C WILL POSSIBLY BE OVER THE WEEKEND. GREEN SHEET ON PATIENT'S CHART. TIMO SERRANO, CLINICAL SUPPORT
[2018-01-13] MEDS: Metoprolol Tartrate 100 MG Tablet PO ×2 (09:16→22:24)
[2018-01-13] MEDS: Furosemide 40 MG/4 ML Vial IV ×2 (09:16→17:54)
[2018-01-13] MEDS: Famotidine 20 MG Tablet PO ×2 (09:16→22:24)
[2018-01-13] MEDS: Enoxaparin 40 MG/0.4 ML Syringe SC (09:16)
--- NOTE | 2018-01-13 10:49 | CON.PCM_ITS ---
Problem List (1) HTN (hypertension) Status: Chronic Qualifiers: Hypertension type: essential hypertension Qualified Code(s): I10 - Essential (primary) hypertension (2) CHF exacerbation Status: Acute Qualifiers: Heart failure type: unspecified Qualified Code(s): I50.9 - Heart failure, unspecified (3) Chronic systolic congestive heart failure Status: Chronic (4) LBBB (left bundle branch block) Status: Chronic (5) Hypertrophic cardiomyopathy Status: Chronic Reason for Consult Date of Consultation: 01/13/18 Reason for Consultation: Irregular heartbeat, shortness of breath, productive cough, lower extremity edema, History of Present Illness: The patient is a 72 year old F, patient of Dr. Fuentes's with an underlying hypertrophic cardiomyopathy, bipolar disorder and schizophrenia. She currently resides at [facility]. An echocardiogram in 2016 demonstrated severe LV concentric hypertrophy, systolic function at the lower limits of normal, and an estimated EF of 50% and dynamic obstruction of the LV outflow tract with concomitant mild 1+ mitral regurgitation. Patient underwent a left and right heart catheterization at [facility] on 10/18/15 in the face of new left bundle branch block and possible ST elevation myocardial infarction. At that time the patient was found to have minimal irregularities of her coronary tree, LVH was present with an EF around 65-70%. No intervention was recommended or performed. Over the last several days the patient has complained of productive cough, shortness of breath, but no fevers. She also complains of an irregular heartbeat and when asked about anticoagulation therapy she declines that she is on it or has been on it. She also complains of lower extremity edema. As part of her workup she underwent troponin analysis which initially showed 0.25 which increased to 0.33. She is resting comfortably currently. Chest x-ray demonstrates possible patchy infiltrates in the right mediastinal area which is worse than previous chest x-rays. No pleural effusions. Cardiomegaly present. Apparently the patient has had worsening lower extremity edema and has been attempted to be managed as an outpatient by Kaye Arroyo and Dr. Fuentes. She has had escalating doses of diuretic therapy, the addition of every other day she was admitted for IV diuresis. Metolazone without much effect. [] Past Medical History Allergies/Adverse Reactions: Allergies No Known Allergies Allergy (Verified 05/31/18 16:41) Home Medications: Ambulatory Orders Medication Instructions Recorded Aspirin E.C. [Ecotrin] 81 mg PO DAILY@0800 #30 tab 01/09/15 asenapine 5 mg sublingual tablet 5 mg SUBLINGUAL QHS tab 08/26/17 metoprolol tartrate 100 mg tablet 100 mg PO BID 08/26/17 verapamil 40 mg tablet 60 mg PO TID tab 08/26/17 Albuterol Aerosols [Ventolin 2.5 mg INHALATION BID PRN PRN 01/12/18 Aerosols] Asenapine Maleate [Saphris] 5 mg SL QHS 01/12/18 furosemide 40 mg tablet 80 mg PO DAILY tab 01/12/18 metolazone 2.5 mg tablet 2.5 mg PO QODAY 01/12/18 potassium chloride ER 20 mEq 20 meq PO DAILY 01/12/18 tablet,extended release(part/cryst) spironolactone 25 mg tablet 25 mg PO DAILY 01/12/18 Past Medical History (Chronic Problems): Chronic Problems (Last Updated 01/12/18 @ 16:49 by NINA Bar) HTN (hypertension) (Chronic) Obesity (BMI 30.0-34.9) (Chronic) Chronic systolic congestive heart failure (Chronic) CVA (cerebral vascular accident) (Chronic) LBBB (left bundle branch block) (Chronic) Hypertrophic cardiomyopathy (Chronic) Surgical History: tonsillectomy Psychiatric History: Anxiety, Depression, Schizophrenia INTERNAL COMBUSTION ENGINEER History: No pertinent INTERNAL COMBUSTION ENGINEER history - *Family History Maternal History Items: Heart Disease Paternal History Items: Heart Disease Lives: [facility] Smoking Status: Never smoker Tobacco Use: Non-smoker Alcohol: None Drugs: None Review of Systems - Review of Systems General: Denies: Fever, Night Sweats, Fatigue Cardiovascular: Reports: Shortness of Breath at Rest. Denies: Chest Discomfort , Shortness of Breath, Orthopnea, PND, Peripheral Edema, Palpitations, Lightheadedness, Dizziness, Near Syncope, Syncope Respiratory: Denies: Cough, Sputum Production, Hemoptysis Gastrointestinal: Denies: Hematemesis, Hematochezia, Melena Genitourinary: Denies: Dysuria, Hematuria Skin: Denies: Rash Subjectve: Patient resting comfortably in a chair, no 24 hour events. Telemetry showed normal sinus rhythm no ectopy. Objective: Vital Signs Temp Pulse Resp BP Pulse Ox 98.3 F 92 18 109/65 96 01/13/18 09:04 01/13/18 09:16 01/13/18 09:04 01/13/18 09:04 01/13/18 09:04 Oxygen Flow Rate (L/min) 2 Oxygen Delivery Method Nasal Cannula Weight: 186 lb 11.704 oz Body Mass Index (BMI) 29.2 Intake and Output for Last 24 Hours 01/11/18 01/12/18 01/13/18 23:59 23:59 23:59 Output Total 150 / 150 Balance -150 / -150 General: Awake, Alert, Oriented x 3 HEENT: PERRL, EOMI, Sclera Non Icteric Neck: Supple, Good ROM, No Lymph Node Enlargement Lungs: Clear to auscultation Cardiovascular: Regular Rhythm, Normal S1, Normal S2, No Rubs, No Gallops Murmur Murmur: Grade 3/6, Holosystolic, LLSB Vascular: No Carotid Bruits, Normal Femoral Pulses, Normal Radial Pulses, Normal Dorsalis Pedal Pulse, Normal Posterior Tibial Pulses Abdomen: Bowel Sounds Present, Soft, Non Tender, No HSM, No Organomegaly Extremities: No Cyanosis, No Clubbing, No edema Neurological: No Focal Motor or Sensory Deficit 01/13/18 03:15: WBC 10.5, RBC 5.29, Hgb 13.0, Hct 44.1, MCV 83.4, MCH 24.6 L, MCHC 29.5 L, RDW 18.0 H, RDW Differential 54.6 H, Plt Count 225, MPV 10.4 01/13/18 03:15: Sodium 139, Potassium 3.4 L, Chloride 85 L, Carbon Dioxide > 45.0 H*, Anion Gap TNP, BUN 30 H, Creatinine 1.03 H, Est GFR (MDRD) Af Amer 68, Est GFR (MDRD) Non-Af 56 L, BUN/Creatinine Ratio 29.1 H, Glucose 141 H, Calcium 9.3, Triglycerides 164, Cholesterol 126, LDL Cholesterol 54, VLDL Cholesterol 33 , HDL Cholesterol 39 L 01/13/18 03:15: Troponin I 0.245 H 01/13/18 05:15: Troponin I 0.287 H 01/13/18 05:15: Magnesium 2.0, Total Bilirubin 1.30 H, Direct Bilirubin 0.26 01/13/18 05:15: B-Natriuretic Peptide 4484.7 H 01/13/18 06:04: pH 7.53 H, Bicarbonate Actual 60.2 H, POC Total CO2 50, Base Excess 30 H, O2 Saturation 95, ABG pCO2 72.8 H*, ABG pO2 76, Michael Test POS 01/13/18 09:24: Troponin I 0.330 H Rhythm: Telemetry negative. EKG: EKG showed normal sinus rhythm with LVH and repolarization abnormality. No acute changes. ECHO: Pending Stress Test: Cardiac Cath: PCI: CT Surgery: Holter monitor: EPS: PPM: CXR: Chest CT Scan: Assessment/Plan 1. Hypertrophic cardiomyopathy: The patient has hypertrophic cardiomyopathy as diagnosed by previous echocardiogram with mildly reduced LV function. The patient presents with shortness of breath, productive cough, and palpitations. She is on both beta-everette and verapamil therapy given her LVH. In addition she appears to have dynamic LV outflow tract obstruction with probable mitral regurgitation as evidenced by physical exam. Her troponins are indeterminate which may be a consequence of her severe LVH. Would recommend a repeat 2D echo with Doppler to determine if she has any worsening of her LV function. She had a previous catheterization [facility] in 2015 which showed minimal nonobstructive coronary artery disease with intact LV function, and relatively normal right-sided pressures. The patient's echocardiogram shows significant LV dysfunction or deterioration since last time, I have a low threshold for repeat left and right heart catheterization. It is most likely the patient will always have indeterminate troponins given her severe LVH going forward. In the meantime recommend continuing her verapamil, Lopressor, and spironolactone. She was also started on every other day metolazone to assist with diuretic therapy. I recommend continuing IV Lasix 40 mg twice daily until the patient has achieved her dry weight. Recommend replacement of her potassium to keep above 4.0, and keep magnesium of 2.0. Continue daily potassium supplementation of 20 mEq p.o. daily. At this point I would not recommend repeat stress testing. 2. Coronary artery disease: The patient had minimal nonobstructive coronary disease by catheterization in October 2015 at an outside facility. Would not recommend repeat catheterization at this time. 3. Hyperlipidemia: Her LDL and HDL cholesterol are at goal. Continue present management. 4. Thank you very much for the opportunity to participate in the cardiac care of the patient. Consultation time took place between 930 and 10 AM. Code Visit Inpatient E&M: 71006 Init Hosp L2
[2018-01-13 12:01] LABS: Bedside Glucose 159 mg/dL (70-110)
--- NOTE | 2018-01-13 13:09 | CASEMGMT ---
Call to Yelena at [facility]. Informed Yelena that Pt could possibly D/C over the weekend. Verified legal guardian information for Pt and weekend fax number for facility. If necessary, Yelena will obtain any authorization required for skilled services at [facility]. Bethany Daley, Clinical Support
--- NOTE | 2018-01-13 13:46 | CHAPLAIN ---
Type of Pastoral Visit _x__ Initial Visit ___ Follow-up Visit ___ On-call Visit ___ General Patient Visit ___ Spiritual Assessment ___ Family Conference ___ Bereavement ___ Rapid Response ___ Code Blue ___ Other (describe below) Pastoral Care Referral From _x__ Patient ___ Family ___ Nurse ___ Physician ___ Wood Cut Engraver ___ Customer Advocate ___ Other (describe below) Sacrament/Intervention ___ Active listening ___ Anointing ___ Orthodox ___ Bereavement ___ Communion ___ Gisselle exploration ___ ___ Life review _x__ Prayer ___ Reconciliation ___ Sacrament of Sick _x__ Supportive presence ___ Wedding ___ Other (describe below) Pastoral Comments
--- NOTE | 2018-01-13 14:21 | PCM.PROGNOTE ---
Patient Problems: Active and Suspected Problems (Last Updated 01/12/18 @ 16:49 by NINA Bar) CHF exacerbation (Acute) Subjective: Pt is resting comfortably in bed, she conitnues to complain of the productive cough and mild dyspnea that has led to her being here that has not improved over the last week and a half. She has had increasing doses of diuretics recently with little increase of urine output and little improvement in edema/cough. She currently denies CP, dizziness, LH, palp. Edema is unchanged. - Physical Exam General: Alert, Oriented x3, Cooperative HEENT: Atraumatic, PERRLA, EOMI, Normocephalic Neck: Supple, No JVD, Negative Carotid Bruits Lungs: Rales - faint rales at the bases Cardiovascular: Regular rate, No murmurs Abdomen: Bowel Sounds Present, Soft, Non Tender Extremities: Capillary Refill Less than 3 Seconds, Edema - 2+ pitting edema below knees Skin: No rashes, No breakdown Musculoskeletal: No Tenderness to Palpation of Joints or Extremities Neurological: Cranial nerves II-XII grossly intact Psych/Mental Status: Flat Affect Vital Signs Temp Pulse Resp BP Pulse Ox 98.3 F 92 18 109/65 97 01/13/18 09:04 01/13/18 09:16 01/13/18 09:04 01/13/18 09:04 01/13/18 10:30 Oxygen Flow Rate (L/min) 3 Oxygen Delivery Method Nasal Cannula Weight: 84.7 kg Body Mass Index (BMI) 29.2 Intake and Output for Last 24 Hours 01/11/18 01/12/18 01/13/18 23:59 23:59 23:59 Intake Total 350 / 350 Output Total 250 / 250 Balance 100 / 100 Laboratory Tests Past 24 Hrs 01/13/18 01/13/18 01/13/18 03:15 03:15 03:15 WBC 10.5 RBC 5.29 Hgb 13.0 Hct 44.1 MCV 83.4 MCH 24.6 L MCHC 29.5 L RDW 18.0 H RDW Differential 54.6 H Plt Count 225 MPV 10.4 Specimen Type Sample Site pH Bicarbonate Actual POC Total CO2 Base Excess O2 Saturation ABG pCO2 ABG pO2 Michael Test O2 Delivery Device Liter Flow Vent Mode Blood Gas Notified Whom Blood Gas Notified Time Sodium 139 Potassium 3.4 L Chloride 85 L Carbon Dioxide > 45.0 H* Anion Gap TNP BUN 30 H Creatinine 1.03 H Estim Creat Clear Calc 49.42 Est GFR (MDRD) Af Amer 68 Est GFR (MDRD) Non-Af 56 L BUN/Creatinine Ratio 29.1 H Glucose 141 H Calcium 9.3 Magnesium Total Bilirubin Direct Bilirubin AST ALT Alkaline Phosphatase Troponin I 0.245 H B-Natriuretic Peptide Total Protein Albumin Globulin Triglycerides 164 Cholesterol 126 LDL Cholesterol 54 VLDL Cholesterol 33 HDL Cholesterol 39 L 01/13/18 01/13/18 01/13/18 05:15 05:15 05:15 WBC RBC Hgb Hct MCV MCH MCHC RDW RDW Differential Plt Count MPV Specimen Type Sample Site pH Bicarbonate Actual POC Total CO2 Base Excess O2 Saturation ABG pCO2 ABG pO2 Michael Test O2 Delivery Device Liter Flow Vent Mode Blood Gas Notified Whom Blood Gas Notified Time Sodium Potassium Chloride Carbon Dioxide Anion Gap BUN Creatinine Estim Creat Clear Calc Est GFR (MDRD) Af Amer Est GFR (MDRD) Non-Af BUN/Creatinine Ratio Glucose Calcium Magnesium 2.0 Total Bilirubin 1.30 H Direct Bilirubin 0.26 AST 37 ALT 25 Alkaline Phosphatase 87 Troponin I 0.287 H B-Natriuretic Peptide 4484.7 H Total Protein 6.7 Albumin 2.9 L Globulin 3.8 Triglycerides Cholesterol LDL Cholesterol VLDL Cholesterol HDL Cholesterol 01/13/18 01/13/18 06:04 09:24 WBC RBC Hgb Hct MCV MCH MCHC RDW RDW Differential Plt Count MPV Specimen Type ART Sample Site LEFT RADIAL pH 7.53 H Bicarbonate Actual 60.2 H POC Total CO2 50 Base Excess 30 H O2 Saturation 95 ABG pCO2 72.8 H* ABG pO2 76 Michael Test POS O2 Delivery Device NC Liter Flow 4.0 Vent Mode O2 Blood Gas Notified Whom [facility] Blood Gas Notified Time 604 Sodium Potassium Chloride Carbon Dioxide Anion Gap BUN Creatinine Estim Creat Clear Calc Est GFR (MDRD) Af Amer Est GFR (MDRD) Non-Af BUN/Creatinine Ratio Glucose Calcium Magnesium Total Bilirubin Direct Bilirubin AST ALT Alkaline Phosphatase Troponin I 0.330 H B-Natriuretic Peptide Total Protein Albumin Globulin Triglycerides Cholesterol LDL Cholesterol VLDL Cholesterol HDL Cholesterol POC Glucose 01/13/18 11:56 POC Glucose 159 H Medical Necessity - Tobacco Use Smoking Status: Never smoker Tobacco Use: Non-smoker Assessment/Plan All Active Problems (Last Updated 01/12/18 @ 16:49 by NINA Bar) CHF exacerbation (Acute) TARAH (acute kidney injury) (Resolved) 1. Acute diastolic CHF exacerbation with hypertrophic cardiomyopathy - cardiology following, planning to continue diuresis with lasix/metolazone/aldactone. I am concerned that with escalating diuretics and CO2 retention, alkalosis on ABG that she is developing a contraction alkalosis. Her legs continue to appear edematous and she was started on O2 in the last week which is new for her. BNP is however Highly elevated. Echo shows EF 75%, Stage 2 diastolic dysfxn, 1-2+ MVI, RVSP 39 mmHg. Cardiology does not recommend repeat stress, may need repeat cath. 2. Indeterminate troponin with hx CAD - mild increase in trop, cardiology following as above. 3. Schizoaffective disorder - home meds. flat affect. 4. Hx CVA - l frontal lobe - on asa, no statin. 5. Hyperglycemia - a1c c/w T2DM, start SSI, plan to start orals at [place]. 6. Known pulmonary nodule 7. Hypokalemia - repleted, check am labs. 8. HLD - at goal DVT ppx: lovenox DC planning: return to [facility] This patient was seen by John Hanson PA-C under the supervision of Doctor Pedroza.
--- NOTE | 2018-01-13 14:31 | PN_ITS ---
Patient Problems: Active and Suspected Problems (Last Updated 01/12/18 @ 16:49 by NINA Bar) CHF exacerbation (Acute) Subjective: Pt is resting comfortably in bed, she conitnues to complain of the productive cough and mild dyspnea that has led to her being here that has not improved over the last week and a half. She has had increasing doses of diuretics recently with little increase of urine output and little improvement in edema/ cough. She currently denies CP, dizziness, LH, palp. Edema is unchanged. - Physical Exam General: Alert, Oriented x3, Cooperative HEENT: Atraumatic, PERRLA, EOMI, Normocephalic Neck: Supple, No JVD, Negative Carotid Bruits Lungs: Rales - faint rales at the bases Cardiovascular: Regular rate, No murmurs Abdomen: Bowel Sounds Present, Soft, Non Tender Extremities: Capillary Refill Less than 3 Seconds, Edema - 2+ pitting edema below knees Skin: No rashes, No breakdown Musculoskeletal: No Tenderness to Palpation of Joints or Extremities Neurological: Cranial nerves II-XII grossly intact Psych/Mental Status: Flat Affect Vital Signs Temp Pulse Resp BP Pulse Ox 98.3 F 92 18 109/65 97 01/13/18 09:04 01/13/18 09:16 01/13/18 09:04 01/13/18 09:04 01/13/18 10:30 Oxygen Flow Rate (L/min) 3 Oxygen Delivery Method Nasal Cannula Weight: 84.7 kg Body Mass Index (BMI) 29.2 Intake and Output for Last 24 Hours 01/11/18 01/12/18 01/13/18 23:59 23:59 23:59 Intake Total 350 / 350 Output Total 250 / 250 Balance 100 / 100 Laboratory Tests Past 24 Hrs 01/13/18 01/13/18 01/13/18 03:15 03:15 03:15 WBC 10.5 RBC 5.29 Hgb 13.0 Hct 44.1 MCV 83.4 MCH 24.6 L MCHC 29.5 L RDW 18.0 H RDW Differential 54.6 H Plt Count 225 MPV 10.4 Specimen Type Sample Site pH Bicarbonate Actual POC Total CO2 Base Excess O2 Saturation ABG pCO2 ABG pO2 Michael Test O2 Delivery Device Liter Flow Vent Mode Blood Gas Notified Whom Blood Gas Notified Time Sodium 139 Potassium 3.4 L Chloride 85 L Carbon Dioxide > 45.0 H* Anion Gap TNP BUN 30 H Creatinine 1.03 H Estim Creat Clear Calc 49.42 Est GFR (MDRD) Af Amer 68 Est GFR (MDRD) Non-Af 56 L BUN/Creatinine Ratio 29.1 H Glucose 141 H Calcium 9.3 Magnesium Total Bilirubin Direct Bilirubin AST ALT Alkaline Phosphatase Troponin I 0.245 H B-Natriuretic Peptide Total Protein Albumin Globulin Triglycerides 164 Cholesterol 126 LDL Cholesterol 54 VLDL Cholesterol 33 HDL Cholesterol 39 L 01/13/18 01/13/18 01/13/18 05:15 05:15 05:15 WBC RBC Hgb Hct MCV MCH MCHC RDW RDW Differential Plt Count MPV Specimen Type Sample Site pH Bicarbonate Actual POC Total CO2 Base Excess O2 Saturation ABG pCO2 ABG pO2 Michael Test O2 Delivery Device Liter Flow Vent Mode Blood Gas Notified Whom Blood Gas Notified Time Sodium Potassium Chloride Carbon Dioxide Anion Gap BUN Creatinine Estim Creat Clear Calc Est GFR (MDRD) Af Amer Est GFR (MDRD) Non-Af BUN/Creatinine Ratio Glucose Calcium Magnesium 2.0 Total Bilirubin 1.30 H Direct Bilirubin 0.26 AST 37 ALT 25 Alkaline Phosphatase 87 Troponin I 0.287 H B-Natriuretic Peptide 4484.7 H Total Protein 6.7 Albumin 2.9 L Globulin 3.8 Triglycerides Cholesterol LDL Cholesterol VLDL Cholesterol HDL Cholesterol 01/13/18 01/13/18 06:04 09:24 WBC RBC Hgb Hct MCV MCH MCHC RDW RDW Differential Plt Count MPV Specimen Type ART Sample Site LEFT RADIAL pH 7.53 H Bicarbonate Actual 60.2 H POC Total CO2 50 Base Excess 30 H O2 Saturation 95 ABG pCO2 72.8 H* ABG pO2 76 Michael Test POS O2 Delivery Device NC Liter Flow 4.0 Vent Mode O2 Blood Gas Notified Whom [facility] Blood Gas Notified Time 604 Sodium Potassium Chloride Carbon Dioxide Anion Gap BUN Creatinine Estim Creat Clear Calc Est GFR (MDRD) Af Amer Est GFR (MDRD) Non-Af BUN/Creatinine Ratio Glucose Calcium Magnesium Total Bilirubin Direct Bilirubin AST ALT Alkaline Phosphatase Troponin I 0.330 H B-Natriuretic Peptide Total Protein Albumin Globulin Triglycerides Cholesterol LDL Cholesterol VLDL Cholesterol HDL Cholesterol POC Glucose 01/13/18 11:56 POC Glucose 159 H Medical Necessity - Tobacco Use Smoking Status: Never smoker Tobacco Use: Non-smoker Assessment/Plan All Active Problems (Last Updated 01/12/18 @ 16:49 by NINA Bar) CHF exacerbation (Acute) TARAH (acute kidney injury) (Resolved) 1. Acute diastolic CHF exacerbation with hypertrophic cardiomyopathy - cardiology following, planning to continue diuresis with lasix/metolazone/ aldactone. I am concerned that with escalating diuretics and CO2 retention, alkalosis on ABG that she is developing a contraction alkalosis. Her legs continue to appear edematous and she was started on O2 in the last week which is new for her. BNP is however Highly elevated. Echo shows EF 75%, Stage 2 diastolic dysfxn, 1-2+ MVI, RVSP 39 mmHg. Cardiology does not recommend repeat stress, may need repeat cath. 2. Indeterminate troponin with hx CAD - mild increase in trop, cardiology following as above. 3. Schizoaffective disorder - home meds. flat affect. 4. Hx CVA - l frontal lobe - on asa, no statin. 5. Hyperglycemia - a1c c/w T2DM, start SSI, plan to start orals at [place]. 6. Known pulmonary nodule 7. Hypokalemia - repleted, check am labs. 8. HLD - at goal DVT ppx: lovenox DC planning: return to [facility] This patient was seen by John Hanson PA-C under the supervision of Doctor Pedroza.
[2018-01-13 15:40] LABS: Bedside Glucose 178 mg/dL (70-110)
--- NOTE | 2018-01-13 16:27 | CASEMGMT ---
Patient is okay for d/c back to [facility] over weekend if ready. Green sheet on chart. Plan: [facility] DONALDSON
[2018-01-13] MEDS: ASENAPINE MALEATE 5 MG TAB.SUBL SL (22:24)
[2018-01-13 23:10] LABS: Bedside Glucose 140 mg/dL (70-110)
[2018-01-14] VITALS (13 sets, daily range): BP systolic 105–124; BP diastolic 65–75; PULSE 68–89; RESP 18–20; TEMP 36.6–37.2; O2SAT 96–100
[2018-01-14] MEDS: Verapamil 120 MG Tablet 60 MG PO ×3 (06:39→21:32)
[2018-01-14 06:51] LABS: Bedside Glucose 133 mg/dL (70-110)
[2018-01-14 07:56] LABS: BUN 32 mg/dL (7-18); BUN/Creat Ratio 27.6 RATIO (10-20); Calcium,Total 9.4 mg/dL (8.5-10.1); Carbon Dioxide > 45.0 mmol/L (21.0-32.0); Chloride 84 mmol/L (98-107); Creatinine, Serum 1.16 mg/dL (0.55-1.02); EST Glomerular Filtration Rate 49 mL/min (>60); Est Glom Filt Rate - Afr Amer 59 mL/min (>60); Estimated Creatinine Clearance 43.88 ml/min; Glucose 122 mg/dL (74-106); Potassium 3.5 mmol/L (3.5-5.1); Sodium Level 139 mmol/L (136-145)
--- NOTE | 2018-01-14 09:03 | PCM.PN.CARD ---
Subjectve: Patient's feels better than prior to her admission. Her shortness of breath has improved. Her lower extremity edema has improved but is still present with some tenderness under her Robert bandages. Echocardiogram yesterday showed severe LVH with hyperdynamic LV function, what appeared to be systolic anterior motion of the mitral leaflet with concomitant posterior mitral regurgitation, and a perimembranous VSD located in the superior portion of her LV with evidence of left to right flow. In addition her pulmonary pressures appear to be greater than 100 consistent with Eisenmenger's complex. Objective: Vital Signs Temp Pulse Resp BP Pulse Ox 98.4 F 81 18 105/65 96 01/14/18 04:00 01/14/18 07:28 01/14/18 04:00 01/14/18 04:00 01/14/18 07:55 Oxygen Flow Rate (L/min) 3 Oxygen Delivery Method Nasal Cannula Weight: 186 lb 11.704 oz Body Mass Index (BMI) 29.2 Intake and Output for Last 24 Hours 01/12/18 01/13/18 01/14/18 23:59 23:59 23:59 Intake Total 700 / 700 150 / 150 Output Total 250 / 250 Balance 450 / 450 150 / 150 General: Awake, Alert, Oriented x 3 HEENT: PERRL, EOMI, Sclera Non Icteric Neck: Supple, Good ROM, No Lymph Node Enlargement Lungs: Clear to auscultation Cardiovascular: Regular Rhythm, Normal S1, Normal S2, No Rubs, No Gallops Murmur Murmur: Grade 3/6, Holosystolic, LLSB Vascular: No Carotid Bruits, Normal Femoral Pulses, Normal Radial Pulses, Normal Dorsalis Pedal Pulse, Normal Posterior Tibial Pulses Abdomen: Bowel Sounds Present, Soft, Non Tender, No HSM, No Organomegaly Extremities: No Cyanosis, No Clubbing, No edema Neurological: No Focal Motor or Sensory Deficit 01/13/18 05:15: B-Natriuretic Peptide 4484.7 H 01/13/18 09:24: Troponin I 0.330 H 01/14/18 06:30: Sodium 139, Potassium 3.5, Chloride 84 L, Carbon Dioxide > 45.0 H*, Anion Gap TNP, BUN 32 H, Creatinine 1.16 H, Est GFR (MDRD) Af Amer 59 L, Est GFR (MDRD) Non-Af 49 L, BUN/Creatinine Ratio 27.6 H, Glucose 122 H, Calcium 9.4 Rhythm: EKG: ECHO: Stress Test: Cardiac Cath: PCI: CT Surgery: Holter monitor: EPS: PPM: CXR: Chest CT Scan: Medical Necessity - Tobacco Use Smoking Status: Never smoker Tobacco Use: Non-smoker Assessment/Plan 1. Hypertrophic cardiomyopathy: The patient has hypertrophic cardiomyopathy as diagnosed by previous echocardiogram with mildly reduced LV function. The patient presents with shortness of breath, productive cough, and palpitations. She is on both beta-everette and verapamil therapy given her LVH. Repeat echocardiogram yesterday showed severe concentric LVH with hyperdynamic LV function with an EF around 75%, palpable systolic anterior motion of the mitral leaflet with associated posteriorly directed mitral regurgitation, and a probable perimembranous VSD with subsequent left to right flow and severe pulmonary hypertension with an RVSP of 109 mmHg, consistent with Eisenmenger's complex. It is most likely the patient will always have indeterminate troponins given her severe LVH going forward. In the meantime recommend continuing her verapamil, Lopressor, and spironolactone. She was also started on every other day metolazone to assist with diuretic therapy. I recommend continuing IV Lasix 40 mg twice daily for 1 more day until the patient has achieved her dry weight, then switch her to Lasix 80 mg p.o. twice daily. Recommend replacement of her potassium to keep above 4.0, and keep magnesium of 2.0. Continue daily potassium supplementation of 20 mEq p.o. daily. Given the patient's severe pulmonary hypertension, and hyperdynamic LV, she is preload dependent, and once her blood pressure begins to dip, I would hold on any further IV diuresis and switch her back to p.o. Lasix. In addition her bicarbonate has increased, suggesting contraction alkalosis with her diuresis. At this point I would not recommend repeat stress testing. Given the patient's severe pulmonary hypertension, she is approaching the point where medical therapy is beginning to fail. This is most likely a consequence of her perimembranous VSD with subsequent severe pulmonary hypertension. In order to better evaluate her VSD, she will require a transesophageal echocardiogram, which given her dyspnea and severe pulmonary hypertension may be somewhat problematic. It does not appear that the patient has had any evaluation for her VSD according to the patient's sister although she was supposed to go down to [facility] several months ago and never did so. This may have been when she was supposed to be evaluated for her VSD. At this point I am unsure whether closure of her VSD and mitral valve repair would be of benefit. Her lower extremity edema may never completely resolved given the severe pulmonary hypertension, and use of verapamil which has a side effect of causing lower extremity edema anyhow. Patient is currently DNR/CCA, and would not recommend transfer to [facility] at this time. 2. Coronary artery disease: The patient had minimal nonobstructive coronary disease by catheterization in October 2015 at an outside facility. Would not recommend repeat catheterization at this time. 3. Hyperlipidemia: Her LDL and HDL cholesterol are at goal. Continue present management. 4. Thank you very much for the opportunity to participate in the cardiac care of the patient. Patient has a very poor prognosis.
[2018-01-14] MEDS: Spironolactone 25 MG Tablet PO (09:57)
[2018-01-14] MEDS: Aspirin E.C. 81 MG Tablet PO (09:57)
[2018-01-14] MEDS: Glucerna Shake 120 ML LIQUID 60 ML PO ×3 (09:57→17:43)
[2018-01-14] MEDS: Furosemide 40 MG/4 ML Vial IV (09:58)
[2018-01-14] MEDS: Metoprolol Tartrate 100 MG Tablet PO ×2 (09:58→21:33)
[2018-01-14] MEDS: Enoxaparin 40 MG/0.4 ML Syringe SC (09:58)
[2018-01-14] MEDS: Famotidine 20 MG Tablet PO ×2 (09:59→21:33)
[2018-01-14] MEDS: Metolazone 2.5 MG Tablet PO (09:59)
[2018-01-14] MEDS: 0.9% NaCl Peripheral Flush Adult/Peds IV (09:59)
--- NOTE | 2018-01-14 10:46 | RAD_ITS ---
STUDY: X-RAY CHEST REASON FOR EXAM: Female, 72 years old. Cough and chest congestion. TECHNIQUE: PA and lateral views of the chest. COMPARISON: January 12, 2018. FINDINGS: Cardiac monitoring leads are present. Lungs are expanded. There is left basilar subsegmental atelectasis. There may be patchy left basilar airspace disease possibly representing pneumonia. There are prominent bronchovascular markings of the right lung base in addition to what may represent interstitial consolidation. There appear to be small pleural effusions. There is mild cardiac enlargement. Normal mediastinum and po. There is prominence of the pulmonary hilar arteries with peripheral pulmonary vascular congestion. There is atherosclerotic calcification of the aortic arch with tortuosity. There is demineralization of the osseous structures. There is increased thoracic kyphosis. Normal visualized ribs, clavicles, and shoulders. There is no demonstrated abnormality of the visualized soft tissue structures of the upper abdomen. RAD/Chest PA and Lateral IMPRESSION: 1. Left basilar airspace consolidation likely representing pneumonia. 2. Cardiomegaly and small pleural effusions. Electronically Signed: Rosalie Mcleod MD at 12:42 EDT , Service support ,
--- NOTE | 2018-01-14 11:02 | CASEMGMT ---
Social Work Note PCU Per conversation with physician patient may benefit from hospice. Physician would like to speak with patient's legal guardian. Reviewed chart and noted patient is a retirement resident at [facility] and that patient's status of having a guardian was confirmed earlier in this stay. Called David at the [facility] and asked for letter of guardianship to be faxed to the hospital so as to be placed in patient's medical record. Hospice would also need this document if patient is signed up for hospice. Received letter of guardianship and this has been placed on patient's chart, to be scanned into record for any future treatments at [facility]. Called patient's legal guardian Kirti Martinez. Discussed that physician would like to meet with guardian to discuss care needs and recommendations. Better will come directly to hospital, anticipate arrival around 1130 today. Updated physician staff. Plan: Return to [facility] for continued care and treatment. Possible addition of hospice pending meeting with guardian today at 1130. Green sheet is on the chart in case patient is discharged back to the nursing facility this weekend. -NALLELY Yin, MEDICAL OFFICE ASSISTANT
[2018-01-14 12:26] LABS: Bedside Glucose 169 mg/dL (70-110)
--- NOTE | 2018-01-14 12:39 | CASEMGMT ---
Social Work Note PCU Per physician legal guardian is agreeable to hospice referral. Spoke with Aisha from [facility] to see which hospice agencies the facility uses. List of options obtained. Met with patient and guardian in the room. Offered several choices: [facility], [facility], [facility] as agencies that [facility] has worked with in the past. Kirti chose [facility]. Discussed with patient that [facility] being called for comfort measures for patient. Patient said yes and then commented that has been losing weight, then just smiled at this telegraphic typewriter mechanic. Called on-call hospice and spoke with Jason parker nurse. Referral given and let Suzy know that patient may be ready to discharge to [facility] tomorrow, and that would want hospice to admit upon return to the [facility]. Suzy will have liaison Jeannine Cotto to arrange a time for discussion and paperwork today. Updated Kirti. Faxed referrals information, order, DNRCC status and guardianship paperwork to confirmed fax at [facility] (fax is [phone]). Updated weekend green sheet to reflect patient entering hospice and need to call hospice nurse when discharge time is known. Updated farmworker fur. Plan: Return to [facility], intermediate level of care, hospice to follow at intermediate. Green Sheet is on the chart to be followed at time of discharge. -NALLELY Yin, TABLET REPAIR
--- NOTE | 2018-01-14 14:56 | PCM.PROGNOTE ---
<John Hanson - Last Filed: 01/14/18 14:56> Patient Problems: Active and Suspected Problems (Last Updated 01/12/18 @ 16:49 by NINA Bar) CHF exacerbation (Acute) Subjective: Pt reports continued productive cough, but overall is less SOB, and has less edema. She remains very weak but has been able to get up to use the bathroom. She denies palp, dizziness, LH. She has no fever or chills. Met with her POA to discuss the terminality of her condition, and she is agreeable to hospice. - Physical Exam General: Alert, Oriented x3, Cooperative HEENT: Atraumatic, PERRLA, EOMI, Normocephalic Neck: Supple, No JVD, Negative Carotid Bruits Lungs: Clear to auscultation, Normal air movement Cardiovascular: Regular rate, No murmurs Abdomen: Bowel Sounds Present, Soft, Non Tender Extremities: Capillary Refill Less than 3 Seconds, Edema - significantly improved, 1+ BL pitting Skin: No rashes, No breakdown Musculoskeletal: No Tenderness to Palpation of Joints or Extremities Neurological: Cranial nerves II-XII grossly intact Psych/Mental Status: Flat Affect Vital Signs Temp Pulse Resp BP Pulse Ox 98.6 F 87 18 113/68 96 01/14/18 09:32 01/14/18 11:08 01/14/18 09:32 01/14/18 09:58 01/14/18 09:32 Oxygen Flow Rate (L/min) 3 Oxygen Delivery Method Nasal Cannula Weight: 84.7 kg Body Mass Index (BMI) 29.2 Intake and Output for Last 24 Hours 01/12/18 01/13/18 01/14/18 23:59 23:59 23:59 Intake Total 700 / 700 690 / 690 Output Total 250 / 250 Balance 450 / 450 690 / 690 Laboratory Tests Past 24 Hrs 01/14/18 06:30 Sodium 139 Potassium 3.5 Chloride 84 L Carbon Dioxide > 45.0 H* Anion Gap TNP BUN 32 H Creatinine 1.16 H Estim Creat Clear Calc 43.88 Est GFR (MDRD) Af Amer 59 L Est GFR (MDRD) Non-Af 49 L BUN/Creatinine Ratio 27.6 H Glucose 122 H Calcium 9.4 POC Glucose 01/14/18 01/14/18 01/13/18 12:20 06:44 22:21 POC Glucose 169 H 133 H 140 H 01/13/18 15:37 POC Glucose 178 H Medical Necessity - Tobacco Use Smoking Status: Never smoker Tobacco Use: Non-smoker Assessment/Plan All Active Problems (Last Updated 01/12/18 @ 16:49 by NINA Bar) CHF exacerbation (Acute) TARAH (acute kidney injury) (Resolved) 1. Acute diastolic CHF exacerbation with hypertrophic cardiomyopathy - improved. CO2 retention, but significant fluid retention. Still crackly lungs but SOB and edema improved. Will transition to PO lasix. -Cardiology notes with echo changes she will continue to have elevated troponins Echo shows severe pulmonary htn - RVSP 109 mmHg up from 76 5 months ago. VSD with left to right flow. 2+ diastolic dysfxn. -Condition is terminal. She is already DNRCCA. -POA is agreeable to hospice. Consult placed. -Repeat CXR showing consolidation, cardiomegaly, small pleural effusions 2. Indeterminate troponin with hx CAD - mild increase in trop, cardiology following as above. 3. Schizoaffective disorder - home meds. flat affect. 4. Hx CVA - l frontal lobe - on asa, no statin. 5. T2DM - start orals at dc. new dx. 6. Known pulmonary nodule 7. Hypokalemia - repleted, check am labs. 8. HLD - at goal DVT ppx: lovenox DC planning: Hospice consult, plan to dc to [facility] on Hospice. This patient was seen by John Hanson PA-C under the supervision of Doctor María Elena <[place] - Last Filed: 01/14/18 16:49> - Physical Exam Vital Signs Temp Pulse Resp BP Pulse Ox 98.6 F 83 18 113/68 96 01/14/18 09:32 01/14/18 15:45 01/14/18 09:32 01/14/18 09:58 01/14/18 09:32 Oxygen Flow Rate (L/min) 3 Oxygen Delivery Method Nasal Cannula Weight: 84.7 kg Body Mass Index (BMI) 29.2 Intake and Output for Last 24 Hours 01/12/18 01/13/18 01/14/18 23:59 23:59 23:59 Intake Total 700 / 700 690 / 690 Output Total 250 / 250 Balance 450 / 450 690 / 690 Laboratory Tests Past 24 Hrs 01/13/18 01/13/18 01/14/18 06:04 06:08 06:30 Specimen Type Cancelled ART Sample Site Cancelled L Radial pH Cancelled 7.53 H Bicarbonate Actual Cancelled 60.2 H POC Total CO2 Cancelled > 50 Base Excess Cancelled > 30 H O2 Saturation Cancelled 95 O2 % Cancelled ABG pCO2 Cancelled 72.8 H* ABG pO2 Cancelled 76 Michael Test Cancelled POS Respiration Rate Cancelled O2 Delivery Device Cancelled Nasal Can Liter Flow Cancelled 4.0 Minute Volume Cancelled Vent Mode Cancelled Tidal Volume Cancelled POC PEEP Cancelled POC Pressure Suppt Cancelled Pressure High Cancelled Pressure Low Cancelled Time High Cancelled Time Low Cancelled EPAP Cancelled IPAP Cancelled Blood Gas Notified Whom Cancelled HOSP MD Blood Gas Notified Time Cancelled 604 Sodium 139 Potassium 3.5 Chloride 84 L Carbon Dioxide > 45.0 H* Anion Gap TNP BUN 32 H Creatinine 1.16 H Estim Creat Clear Calc 43.88 Est GFR (MDRD) Af Amer 59 L Est GFR (MDRD) Non-Af 49 L BUN/Creatinine Ratio 27.6 H Glucose 122 H Calcium 9.4 POC Glucose 01/14/18 01/14/18 01/13/18 12:20 06:44 22:21 POC Glucose 169 H 133 H 140 H Assessment/Plan Patient was seen and examined with physician medical assistant prn John Hanson. I agree with this above interval history, physical examination assessment and plan. Patient was seen and examined. Denies any new complaints, still very short of breath with episodic coughing. Remains on 3 L of oxygen. Vitals reviewed and were stable. Labs review is significant for persistent alkalemia with slightly worse creatinine. Agree with switching from IV Lasix to oral Lasix. Discussed in detail with the legal guardian, is agreeable to hospice consult on account of severe pulmonary hypertension( RVSP 109). Chest x-ray from this morning shows left-sided basilar space consolidation; x-ray showed sided basilar atelectasis, will continue on Lasix therapy, repeat chest x-ray tomorrow morning to see if this improves. Hold off antibiotics for now. Code Visit Inpatient E&M: 99691 Subs Hosp L2
--- NOTE | 2018-01-14 15:05 | PN_ITS ---
<John Hanson - Last Filed: 01/14/18 14:56> Patient Problems: Active and Suspected Problems (Last Updated 01/12/18 @ 16:49 by NINA Bar) CHF exacerbation (Acute) Subjective: Pt reports continued productive cough, but overall is less SOB, and has less edema. She remains very weak but has been able to get up to use the bathroom. She denies palp, dizziness, LH. She has no fever or chills. Met with her POA to discuss the terminality of her condition, and she is agreeable to hospice. - Physical Exam General: Alert, Oriented x3, Cooperative HEENT: Atraumatic, PERRLA, EOMI, Normocephalic Neck: Supple, No JVD, Negative Carotid Bruits Lungs: Clear to auscultation, Normal air movement Cardiovascular: Regular rate, No murmurs Abdomen: Bowel Sounds Present, Soft, Non Tender Extremities: Capillary Refill Less than 3 Seconds, Edema - significantly improved, 1+ BL pitting Skin: No rashes, No breakdown Musculoskeletal: No Tenderness to Palpation of Joints or Extremities Neurological: Cranial nerves II-XII grossly intact Psych/Mental Status: Flat Affect Vital Signs Temp Pulse Resp BP Pulse Ox 98.6 F 87 18 113/68 96 01/14/18 09:32 01/14/18 11:08 01/14/18 09:32 01/14/18 09:58 01/14/18 09:32 Oxygen Flow Rate (L/min) 3 Oxygen Delivery Method Nasal Cannula Weight: 84.7 kg Body Mass Index (BMI) 29.2 Intake and Output for Last 24 Hours 01/12/18 01/13/18 01/14/18 23:59 23:59 23:59 Intake Total 700 / 700 690 / 690 Output Total 250 / 250 Balance 450 / 450 690 / 690 Laboratory Tests Past 24 Hrs 01/14/18 06:30 Sodium 139 Potassium 3.5 Chloride 84 L Carbon Dioxide > 45.0 H* Anion Gap TNP BUN 32 H Creatinine 1.16 H Estim Creat Clear Calc 43.88 Est GFR (MDRD) Af Amer 59 L Est GFR (MDRD) Non-Af 49 L BUN/Creatinine Ratio 27.6 H Glucose 122 H Calcium 9.4 POC Glucose 01/14/18 01/14/18 01/13/18 12:20 06:44 22:21 POC Glucose 169 H 133 H 140 H 01/13/18 15:37 POC Glucose 178 H Medical Necessity - Tobacco Use Smoking Status: Never smoker Tobacco Use: Non-smoker Assessment/Plan All Active Problems (Last Updated 01/12/18 @ 16:49 by NINA Bar) CHF exacerbation (Acute) TARAH (acute kidney injury) (Resolved) 1. Acute diastolic CHF exacerbation with hypertrophic cardiomyopathy - improved. CO2 retention, but significant fluid retention. Still crackly lungs but SOB and edema improved. Will transition to PO lasix. -Cardiology notes with echo changes she will continue to have elevated troponins Echo shows severe pulmonary htn - RVSP 109 mmHg up from 76 5 months ago. VSD with left to right flow. 2+ diastolic dysfxn. -Condition is terminal. She is already DNRCCA. -POA is agreeable to hospice. Consult placed. -Repeat CXR showing consolidation, cardiomegaly, small pleural effusions 2. Indeterminate troponin with hx CAD - mild increase in trop, cardiology following as above. 3. Schizoaffective disorder - home meds. flat affect. 4. Hx CVA - l frontal lobe - on asa, no statin. 5. T2DM - start orals at dc. new dx. 6. Known pulmonary nodule 7. Hypokalemia - repleted, check am labs. 8. HLD - at goal DVT ppx: lovenox DC planning: Hospice consult, plan to dc to [facility] on Hospice. This patient was seen by John Hanson PA-C under the supervision of Doctor María Elena <[place]ía [place] - Last Filed: 01/14/18 16:49> - Physical Exam Vital Signs Temp Pulse Resp BP Pulse Ox 98.6 F 83 18 113/68 96 01/14/18 09:32 01/14/18 15:45 01/14/18 09:32 01/14/18 09:58 01/14/18 09:32 Oxygen Flow Rate (L/min) 3 Oxygen Delivery Method Nasal Cannula Weight: 84.7 kg Body Mass Index (BMI) 29.2 Intake and Output for Last 24 Hours 01/12/18 01/13/18 01/14/18 23:59 23:59 23:59 Intake Total 700 / 700 690 / 690 Output Total 250 / 250 Balance 450 / 450 690 / 690 Laboratory Tests Past 24 Hrs 01/13/18 01/13/18 01/14/18 06:04 06:08 06:30 Specimen Type Cancelled ART Sample Site Cancelled L Radial pH Cancelled 7.53 H Bicarbonate Actual Cancelled 60.2 H POC Total CO2 Cancelled > 50 Base Excess Cancelled > 30 H O2 Saturation Cancelled 95 O2 % Cancelled ABG pCO2 Cancelled 72.8 H* ABG pO2 Cancelled 76 Michael Test Cancelled POS Respiration Rate Cancelled O2 Delivery Device Cancelled Nasal Can Liter Flow Cancelled 4.0 Minute Volume Cancelled Vent Mode Cancelled Tidal Volume Cancelled POC PEEP Cancelled POC Pressure Suppt Cancelled Pressure High Cancelled Pressure Low Cancelled Time High Cancelled Time Low Cancelled EPAP Cancelled IPAP Cancelled Blood Gas Notified Whom Cancelled HOSP MD Blood Gas Notified Time Cancelled 604 Sodium 139 Potassium 3.5 Chloride 84 L Carbon Dioxide > 45.0 H* Anion Gap TNP BUN 32 H Creatinine 1.16 H Estim Creat Clear Calc 43.88 Est GFR (MDRD) Af Amer 59 L Est GFR (MDRD) Non-Af 49 L BUN/Creatinine Ratio 27.6 H Glucose 122 H Calcium 9.4 POC Glucose 01/14/18 01/14/18 01/13/18 12:20 06:44 22:21 POC Glucose 169 H 133 H 140 H Assessment/Plan Patient was seen and examined with physician educational program assistant John Hanson. I agree with this above interval history, physical examination assessment and plan. Patient was seen and examined. Denies any new complaints, still very short of breath with episodic coughing. Remains on 3 L of oxygen. Vitals reviewed and were stable. Labs review is significant for persistent alkalemia with slightly worse creatinine. Agree with switching from IV Lasix to oral Lasix. Discussed in detail with the legal guardian, is agreeable to hospice consult on account of severe pulmonary hypertension( RVSP 109). Chest x-ray from this morning shows left-sided basilar space consolidation; x- ray showed sided basilar atelectasis, will continue on Lasix therapy, repeat chest x-ray tomorrow morning to see if this improves. Hold off antibiotics for now. Code Visit Inpatient E&M: [id number] Subs Hosp L2
[2018-01-14 15:46] LABS: Allen Test POS; Base Excess > 30 mmol/L (-2 to +2); Bicarbonate 60.2 mmol/L (22-26); Blood Gas Specimen Type ART; O2 Delivery Device Nasal Can; PO2 76 mmHG (75-100); SITE L Radial; SO2 95 % (95-99); Time Given 604; Total Carbon Dioxide > 50 mmol/L; pCO2 72.8 mmHg (35-45); pH 7.53 (7.35-7.45)
[2018-01-14] MEDS: Furosemide 80 MG Tablet PO (17:43)
[2018-01-14 18:40] LABS: Bedside Glucose 254 mg/dL (70-110)
[2018-01-14] MEDS: ASENAPINE MALEATE 5 MG TAB.SUBL SL (21:34)
[2018-01-14] MEDS: guaiFENesin 10 ML UDC (200MG/10ML) PO (21:35)
[2018-01-14 22:41] LABS: Bedside Glucose 148 mg/dL (70-110)
[2018-01-15] VITALS (8 sets, daily range): BP systolic 107–142; BP diastolic 72–73; PULSE 76–81; RESP 17–20; TEMP 36.8; O2SAT 92–94
--- NOTE | 2018-01-15 04:40 | RAD_ITS ---
STUDY: X-RAY CHEST REASON FOR EXAM: Female, 72 years old. Chest pain. TECHNIQUE: Single AP portable view of the chest. COMPARISON: January 14, 2018. FINDINGS: Cardiac monitoring leads are present. The lungs are underexpanded. There is right upper lobe airspace disease possibly representing pneumonia. There is left basilar subsegmental atelectasis. There is a nodular area at the left lung base measuring approximately 11 mm in greatest dimension. There is no demonstrated pleural abnormality. There is moderate cardiac enlargement. Normal mediastinum and po. Normal visualized pulmonary arteries. There is atherosclerotic calcification of the aortic arch with tortuosity. There is demineralization of the osseous structures. Normal visualized ribs, clavicles, and shoulders. There is no demonstrated abnormality of the visualized soft tissue structures of the upper abdomen. RAD/Chest 1 View (Portable) IMPRESSION: 1. Right upper lobe airspace disease possibly representing pneumonia. 2. Left basilar subsegmental atelectasis and possible pulmonary nodule. Electronically Signed: Rosalie Mcleod MD at 15:15 EDT , Service support ,
[2018-01-15] MEDS: Verapamil 120 MG Tablet 60 MG PO (06:32)
[2018-01-15 06:39] LABS: Absolute Lymphocyte Count 1.42 X10^3/ul (0.83-4.51); Absolute Neutrophil Count 6.2 X10^3/uL (2.0-7.7); Basophil# 0.04 X10^3/uL; Basophil% 0.4 % (0-1); Eosinophil# 0.23 X10^3/uL; Eosinophils% 2.6 % (0-5); Hematocrit 48.7 % (37-47); Hemoglobin 14.5 g/dl (12.0-15.0); Lymphocyte # 1.42 X10^3/ul (4.0); Lymphocyte % 15.8 % (19-41); Mean Corp Hgb Conc 29.8 g/gl (32-36); Mean Corpuscular Hgb 24.7 pg (27.0-32.0); Mean Corpuscular Volume 82.8 fL (81-99); Monocyte# 1.08 X10^3/uL; Neutrophil # 6.21 X10^3/uL (2.7-7.7); Platelet Count 261 K/mm3 (150-450); RBC Distribution Width CV 18.8 % (11.6-14.6); RBC Distribution Width SD 56.6 fl (35.1-43.9); Red Blood Count 5.88 M/mm3 (4.2-5.4)
[2018-01-15 06:40] LABS: POSITIVE COUNT NO; POSITIVE DIFFERENTIAL NO; POSITIVE MORPHOLOGY NO
[2018-01-15 07:00] LABS: BUN 34 mg/dL (7-18); BUN/Creat Ratio 27.2 RATIO (10-20); Calcium,Total 9.6 mg/dL (8.5-10.1); Carbon Dioxide > 45.0 mmol/L (21.0-32.0); Chloride 80 mmol/L (98-107); Creatinine, Serum 1.25 mg/dL (0.55-1.02); EST Glomerular Filtration Rate 45 mL/min (>60); Est Glom Filt Rate - Afr Amer 54 mL/min (>60); Estimated Creatinine Clearance 40.72 ml/min; Glucose 122 mg/dL (74-106); Potassium 3.6 mmol/L (3.5-5.1); Sodium Level 132 mmol/L (136-145)
[2018-01-15 07:01] LABS: Bedside Glucose 160 mg/dL (70-110)
--- NOTE | 2018-01-15 08:59 | PCM.PN.CARD ---
Subjectve: Patient doing much better this morning, able to lay flat, no shortness of breath. Approaching of bulimia. Lower extremity edema markedly improved. Telemetry showed normal sinus rhythm without ectopy. No chest pain overnight. Objective: Vital Signs Temp Pulse Resp BP Pulse Ox 98.2 F 78 20 H 142/73 H 92 01/15/18 03:30 01/15/18 07:11 01/15/18 03:30 01/15/18 03:30 01/15/18 07:45 Oxygen Flow Rate (L/min) 2 Oxygen Delivery Method Nasal Cannula Weight: 186 lb 11.704 oz Body Mass Index (BMI) 29.2 Intake and Output for Last 24 Hours 01/13/18 01/14/18 01/15/18 23:59 23:59 23:59 Intake Total 700 / 700 1370 / 1370 100 / 100 Output Total 250 / 250 400 / 400 100 / 100 Balance 450 / 450 970 / 970 0 / 0 General: Awake, Alert, Oriented x 3 HEENT: PERRL, EOMI, Sclera Non Icteric Neck: Supple, Good ROM, No Lymph Node Enlargement Lungs: Clear to auscultation Cardiovascular: Regular Rhythm, Normal S1, Normal S2, No Rubs, No Gallops Murmur Murmur: Grade 3/6, Holosystolic, LLSB Vascular: No Carotid Bruits, Normal Femoral Pulses, Normal Radial Pulses, Normal Dorsalis Pedal Pulse, Normal Posterior Tibial Pulses Abdomen: Bowel Sounds Present, Soft, Non Tender, No HSM, No Organomegaly Extremities: No Cyanosis, No Clubbing, No edema Neurological: No Focal Motor or Sensory Deficit 01/13/18 06:04: pH Cancelled, Bicarbonate Actual Cancelled, POC Total CO2 Cancelled, Base Excess Cancelled, O2 Saturation Cancelled, ABG pCO2 Cancelled, ABG pO2 Cancelled, Michael Test Cancelled 01/13/18 06:08: pH 7.53 H, Bicarbonate Actual 60.2 H, POC Total CO2 > 50, Base Excess > 30 H, O2 Saturation 95, ABG pCO2 72.8 H*, ABG pO2 76, Michael Test POS 01/15/18 06:17: WBC 9.0, RBC 5.88 H, Hgb 14.5, Hct 48.7 H, MCV 82.8, MCH 24.7 L, MCHC 29.8 L, RDW 18.8 H, RDW Differential 56.6 H, Plt Count 261, MPV 11.0, Immature Gran % (Auto) 0.200, Neut % (Auto) 69.0, Lymph % (Auto) 15.8 L, [place] % (Auto) 12.0 H, Eos % (Auto) 2.6, Baso % (Auto) 0.4, Absolute Neuts (auto) 6.2, Total Counted Not Reportable 01/15/18 06:17: Sodium 132 L, Potassium 3.6, Chloride 80 L, Carbon Dioxide > 45.0 H*, Anion Gap TNP, BUN 34 H, Creatinine 1.25 H, Est GFR (MDRD) Af Amer 54 L, Est GFR (MDRD) Non-Af 45 L, BUN/Creatinine Ratio 27.2 H, Glucose 122 H, Calcium 9.6 Rhythm: EKG: ECHO: Stress Test: Cardiac Cath: PCI: CT Surgery: Holter monitor: EPS: PPM: CXR: Chest CT Scan: Medical Necessity - Tobacco Use Smoking Status: Never smoker Tobacco Use: Non-smoker Assessment/Plan 1. Hypertrophic cardiomyopathy: The patient has hypertrophic cardiomyopathy as diagnosed by previous echocardiogram with mildly reduced LV function. The patient presents with shortness of breath, productive cough, and palpitations. She is on both beta-everette and verapamil therapy given her LVH. Repeat echocardiogram yesterday showed severe concentric LVH with hyperdynamic LV function with an EF around 75%, palpable systolic anterior motion of the mitral leaflet with associated posteriorly directed mitral regurgitation, and a probable perimembranous VSD with subsequent left to right flow and severe pulmonary hypertension with an RVSP of 109 mmHg, consistent with Eisenmenger's complex. It is most likely the patient will always have indeterminate troponins given her severe LVH going forward. In the meantime recommend continuing her verapamil, Lopressor, and spironolactone. She was also started on every other day metolazone to assist with diuretic therapy. Now that she is reached her dry weight, has no further orthopnea or shortness of breath, would recommend switching her to Lasix 80 mg p.o. twice daily. Recommend replacement of her potassium to keep above 4.0, and keep magnesium of 2.0. Continue daily potassium supplementation of 20 mEq p.o. daily. Given the patient's severe pulmonary hypertension, and hyperdynamic LV, she is preload dependent, and once her blood pressure begins to dip, I would hold on any further IV diuresis and switch her back to p.o. Lasix. In addition her bicarbonate has increased, suggesting contraction alkalosis with her diuresis. At this point I would not recommend repeat stress testing or catheterization. Given the patient's severe pulmonary hypertension, she is approaching the point where medical therapy is beginning to fail. This is most likely a consequence of her perimembranous VSD with subsequent severe pulmonary hypertension. In order to better evaluate her VSD, she will require a transesophageal echocardiogram, which given her dyspnea and severe pulmonary hypertension may be somewhat problematic. It does not appear that the patient has had any evaluation for her VSD according to the patient's sister although she was supposed to go down to [facility] several months ago and never did so. This may have been when she was supposed to be evaluated for her VSD. At this point I am unsure whether closure of her VSD and mitral valve repair would be of benefit. Her lower extremity edema may never completely resolved given the severe pulmonary hypertension, and use of verapamil which has a side effect of causing lower extremity edema anyhow. Patient is currently DNR/CCA, and would not recommend transfer to [facility] at this time. My understanding is that she is going to be placed in hospice. Given her severe pulmonary hypertension, and limited mobility, she is at high risk for DVT thrombosis and/or pulmonary embolism. Recommend Eliquis 2.5 mg p.o. twice daily. 2. Coronary artery disease: The patient had minimal nonobstructive coronary disease by catheterization in October 2015 at an outside facility. Would not recommend repeat catheterization at this time. 3. Hyperlipidemia: Her LDL and HDL cholesterol are at goal. Continue present management. 4. Thank you very much for the opportunity to participate in the cardiac care of the patient. Patient has a very poor prognosis. Patient will follow-up with Dr. Fuentes ending transfer back to assisted living. Code Visit Inpatient E&M: [id number] Subs Hosp L2
[2018-01-15] MEDS: Spironolactone 25 MG Tablet PO (10:11)
[2018-01-15] MEDS: Aspirin E.C. 81 MG Tablet PO (10:11)
[2018-01-15] MEDS: Metoprolol Tartrate 100 MG Tablet PO (10:12)
[2018-01-15] MEDS: APIXABAN 2.5 MG TABLET PO (10:12)
[2018-01-15] MEDS: Furosemide 80 MG Tablet PO (10:12)
[2018-01-15] MEDS: Famotidine 20 MG Tablet PO (10:12)
[2018-01-15] MEDS: Glucerna Shake 120 ML LIQUID 60 ML PO (10:12)
--- NOTE | 2018-01-15 11:37 | TREXTCAR_ITS ---
- Diet 01/12/18 20:08 Diet: Cardiac/Low Cholesterol Food consistency:: Regular Liquid Consistency:: Regular/Thin - Routine Orders/Code Status Suppository Type: Dulcolax 10mg Suppository Frequency: Daily PRN O2 Frequency: Continuous Routine Lab Work: CBC, BMP Code Status: DNC-A - Wound(s) Bilat LE's Wound Type: Blistering/peeling, a few scabs - Therapies Physical Therapy: Eval and Treat Occupational Therapy: Eval and Treat - Problem/Diagnosis (1) CHF exacerbation Status: Acute Current Visit: Yes (2) Diastolic CHF, acute on chronic Status: Acute Current Visit: Yes (3) Elevated troponin Status: Acute Current Visit: Yes (4) Pulmonary HTN Status: Chronic Current Visit: Yes (5) VSD (ventricular septal defect) Status: Chronic Current Visit: Yes (6) Schizoaffective disorder Status: Chronic Current Visit: Yes (7) Diabetes Status: Chronic Current Visit: Yes (8) HLD (hyperlipidemia) Status: Chronic Current Visit: Yes (9) HTN (hypertension) Status: Chronic Current Visit: Yes (10) Hypertrophic cardiomyopathy Status: Chronic Current Visit: No - Allergies/Procedures Done in Hospital Allergies/Adverse Reactions: Allergies No Known Allergies Allergy (Verified 01/12/18 16:41) Procedures: 2-D Echocardiogram - Type of Care/Length of Stay Estimated LOS: More Than 30 Days Type of Care Needed: Intermediate Rehab Potential: Poor Prognosis: Poor - Additional Orders/Day of Discharge Additional Orders: [facility] to follow at the [facility]. Consult initiated while in the hospital on 01-14-2018. Day of Discharge: 01/15/18 - Dietary and Speech Recommendations Dietitian Recommendations/Changes: Recommend diet change to Cardiac/Low Cholesterol, Low Sodium. Continue on FR 1500 cc/day. - Follow Up Care Primary Care Physician: Costa Mcleod MD [Primary Care Provider] - Please follow up with your Primary Care Physician in: 2 weeks Please Follow Up With: Hospice, outpatient When: 1-2 weeks Please Follow Up With: Cardiology When: 1-2 weeks
[2018-01-15 11:40] LABS: Bedside Glucose 159 mg/dL (70-110)
--- NOTE | 2018-01-15 13:01 | NURSING ---
Report called to Trudy nurse at [facility].
--- NOTE | 2018-01-15 13:11 | PCM.DC.SUM ---
<John Hanson - Last Filed: 01/15/18 13:11> Discharge Date and Diagnosis Date of Admission: 01/12/18 Date of Discharge: 01/15/18 - Primary Discharge Diagnosis Active and Suspected Problems (Last Updated 01/12/18 @ 16:49 by NINA Bar) Diastolic CHF exacerbation (Acute) Severe pulmonary HTN VSD Elevated troponin (Acute) Schizoaffective disorder Hx CVA T2DM (new dx) Pulm nodule HLD - Secondary Discharge Diagnosis Chronic Problems (Last Updated 01/12/18 @ 16:49 by NINA Bar) HTN (hypertension) (Chronic) Obesity (BMI 30.0-34.9) (Chronic) Pulmonary HTN (Chronic) VSD (ventricular septal defect) (Chronic) Schizoaffective disorder (Chronic) Diabetes (Chronic) HLD (hyperlipidemia) (Chronic) Chronic systolic congestive heart failure (Chronic) CVA (cerebral vascular accident) (Chronic) LBBB (left bundle branch block) (Chronic) Hypertrophic cardiomyopathy (Chronic) Hospital Course and Treatment Imaging Results: Echo: Interpretation Summary Severe concentric left ventricular hypertrophy. The estimated ejection fraction is 75 %. Stage 2 diastolic dysfunction. The left atrium is severely enlarged. Mild-Moderate (1-2+) posteriorly directed mitral valve insufficiency. Systolic anterior motion of the mitral valve. Trivial tricuspid valve insufficiency. Cannot exclude high perimembranous VSD. Right ventricular systolic pressure estimated to be 109 mmHg. Compared to previous echo dated 09/09/2017, no appreciable changes noted. RVSP was 76 at that time, and has now increased to 109 mm Hg. RAD/Chest 1 View (Portable) IMPRESSION: Low lung volumes with left basilar atelectasis. Cardiomegaly. RAD/Chest PA and Lateral IMPRESSION: 1. Left basilar airspace consolidation likely representing pneumonia. 2. Cardiomegaly and small pleural effusions. Consults: Cardiology-Dr. Mcgee Operations: None Procedures: 2-D Echocardiogram Summary of Care Provided: Physical exam on day of discharge: General: Resting comfortably NAD Psych: A/Ox3, flat a fact HEENT: PEARRLA AT NC Neck: Supple NT CV: RRR no m/t/r/g/h Resp: Rales appreciable in bilateral lower parikh, posteriorly, right greater than left Abd: [id number] Soft NT no guarding or rigidity Ext: DP2+= 1+ pitting edema, Robert wraps in place, bilateral Skin: W/D normal turgor Lymph/Heme: No active bleeding or adenopathy Neuro: CN2-12 intact Hospital course The patient is a 72 year old F who is a permanent resident of [facility], with a known history of diastolic heart failure, severe pulmonary hypertension, schizoaffective disorder, known ventricular septal defect, history of CVA, pulmonary nodule, hyperlipidemia, generalized debility, who presented to the emergency room with progressively worsening lower extremity edema, shortness of breath and cough over the past week and a half. She had been receiving gradually increasing doses of diuretics per cardiology with little improvement as an outpatient and was felt that she needed inpatient evaluation. She is admitted to the PCU and placed on cardiac monitoring. She had an indeterminate troponin. Cardiology was consulted. She is placed on 40 twice daily of IV Lasix in addition to her spironolactone and every other day metolazone. She had good diuresis and improvement in her lower extremity edema, shortness of breath, and cough. She has severely elevated BNP and Chest x-ray consistent with congestive heart failure. She had a repeat echocardiogram done while she was here which redemonstrated her VSD and demonstrated that her right ventricular systolic pressures had increased from 76 to 109. The patient did have an increased CO2 level which is likely compensatory alkalosis with increasing diuretics however she was benefiting from further diuresis with improved breathing and edema. Cardiology felt that the patient would benefit from continued diuresis at higher doses as an outpatient after discharge. Due to the very poor prognosis and the general decline in her health is felt that hospice was appropriate. This was discussed with the patient's legal guardian who was agreeable. Hospice was consulted and she will continue to follow hospice as an outpatient from [facility]. She is placed on 80 twice daily of Lasix going forward and should continue her spironolactone and every other day metolazone. We also found that she had elevated blood sugars with an elevated A1c and she was started on metformin. Cardiology felt that she was at a very high risk for DVTs and PE given her limited mobility and severe pulmonary hypertension and she was subsequently started on Eliquis. The patient was transitioned to oral Lasix and remained stable. She was [facility] to [facility] in stable condition. She will need to follow-up depending on her clinical course, with her PCP, and cardiology. This patient was seen by John Hanson PA-C under the supervision of Doctor Ring. [] Discharge Diet: 1800 Calorie Control Diet, 2000 mg Sodium Diet Discharge Activity: Return to Normal Activity Home Medications: Medications to take at Discharge Aspirin E.C. [Ecotrin] 81 mg PO DAILY@0800 #30 tab 01/09/15 asenapine 5 mg sublingual tablet 5 mg SUBLINGUAL QHS tab 08/26/17 metoprolol tartrate 100 mg tablet 100 mg PO BID 08/26/17 verapamil 40 mg tablet 60 mg PO TID tab 08/26/17 Albuterol Aerosols [Ventolin Aerosols] 2.5 mg INHALATION BID PRN PRN 01/12/18 Asenapine Maleate [Saphris] 5 mg SL QHS 01/12/18 metolazone 2.5 mg tablet 2.5 mg PO QODAY 01/12/18 potassium chloride ER 20 mEq tablet,extended release(part/cryst) 20 meq PO DAILY 01/12/18 spironolactone 25 mg tablet 25 mg PO DAILY 01/12/18 Apixaban [Eliquis] 2.5 mg PO BID #0 tablet 01/15/18 Furosemide [Lasix] 80 mg PO BID@1000,1800 tablet 01/15/18 Glucerna Shake 60 ml PO 4X/DAY liquid 01/15/18 Metformin HCl 500 mg PO DAILY #30 tablet 01/15/18 Following Prescrptions Were Given to Patient: Metformin HCl 500 mg PO DAILY #30 tablet Primary Care Physician: Costa Mcleod MD [Primary Care Provider] - Please follow up with your Primary Care Physician in: 2 weeks Please Follow Up With: Hospice, outpatient When: 1-2 weeks Please Follow Up With: Cardiology When: 1-2 weeks Disposition: Longterm facility - on hospice Minutes spent on discharge:: 35 Patient Condition:: Stable Medical Necessity - Tobacco Use Smoking Status: Never smoker Tobacco Use: Non-smoker Meaningful Use Info Meaningful Use Diagnoses (Choose all that apply): CHF - CHF ROBERT/ARB ordered at discharge?: No Reason ROBERT/ARB not ordered?: Worsening renal disease Documented LVEF (%): 75 <Lizeth Ring - Last Filed: 01/15/18 14:11> Discharge Date and Diagnosis - Secondary Discharge Diagnosis Chronic Problems (Last Updated 01/12/18 @ 16:49 by NINA Bar) HTN (hypertension) (Chronic) Obesity (BMI 30.0-34.9) (Chronic) Pulmonary HTN (Chronic) VSD (ventricular septal defect) (Chronic) Schizoaffective disorder (Chronic) Diabetes (Chronic) HLD (hyperlipidemia) (Chronic) Chronic systolic congestive heart failure (Chronic) CVA (cerebral vascular accident) (Chronic) LBBB (left bundle branch block) (Chronic) Hypertrophic cardiomyopathy (Chronic) Hospital Course and Treatment Summary of Care Provided: The patient is a 72 year old F [] Code Visit Inpatient E&M: 69832 Disch Hosp
--- NOTE | 2018-01-15 13:20 | DS.PCM_ITS ---
<John Hanson - Last Filed: 01/15/18 13:11> Discharge Date and Diagnosis Date of Admission: 01/12/18 Date of Discharge: 01/15/18 - Primary Discharge Diagnosis Active and Suspected Problems (Last Updated 01/12/18 @ 16:49 by NINA Bar) Diastolic CHF exacerbation (Acute) Severe pulmonary HTN VSD Elevated troponin (Acute) Schizoaffective disorder Hx CVA T2DM (new dx) Pulm nodule HLD - Secondary Discharge Diagnosis Chronic Problems (Last Updated 01/12/18 @ 16:49 by NINA Bar) HTN (hypertension) (Chronic) Obesity (BMI 30.0-34.9) (Chronic) Pulmonary HTN (Chronic) VSD (ventricular septal defect) (Chronic) Schizoaffective disorder (Chronic) Diabetes (Chronic) HLD (hyperlipidemia) (Chronic) Chronic systolic congestive heart failure (Chronic) CVA (cerebral vascular accident) (Chronic) LBBB (left bundle branch block) (Chronic) Hypertrophic cardiomyopathy (Chronic) Hospital Course and Treatment Imaging Results: Echo: Interpretation Summary Severe concentric left ventricular hypertrophy. The estimated ejection fraction is 75 %. Stage 2 diastolic dysfunction. The left atrium is severely enlarged. Mild-Moderate (1-2+) posteriorly directed mitral valve insufficiency. Systolic anterior motion of the mitral valve. Trivial tricuspid valve insufficiency. Cannot exclude high perimembranous VSD. Right ventricular systolic pressure estimated to be 109 mmHg. Compared to previous echo dated 09/09/2017, no appreciable changes noted. RVSP was 76 at that time, and has now increased to 109 mm Hg. RAD/Chest 1 View (Portable) IMPRESSION: Low lung volumes with left basilar atelectasis. Cardiomegaly. RAD/Chest PA and Lateral IMPRESSION: 1. Left basilar airspace consolidation likely representing pneumonia. 2. Cardiomegaly and small pleural effusions. Consults: Cardiology-Dr. Mcgee Operations: None Procedures: 2-D Echocardiogram Summary of Care Provided: Physical exam on day of discharge: General: Resting comfortably NAD Psych: A/Ox3, flat a fact HEENT: PEARRLA AT NC Neck: Supple NT CV: RRR no m/t/r/g/h Resp: Rales appreciable in bilateral lower parikh, posteriorly, right greater than left Abd: [id number] Soft NT no guarding or rigidity Ext: DP2+= 1+ pitting edema, Robert wraps in place, bilateral Skin: W/D normal turgor Lymph/Heme: No active bleeding or adenopathy Neuro: CN2-12 intact Hospital course The patient is a 72 year old F who is a permanent resident of [facility], with a known history of diastolic heart failure, severe pulmonary hypertension, schizoaffective disorder, known ventricular septal defect, history of CVA, pulmonary nodule, hyperlipidemia, generalized debility, who presented to the emergency room with progressively worsening lower extremity edema, shortness of breath and cough over the past week and a half. She had been receiving gradually increasing doses of diuretics per cardiology with little improvement as an outpatient and was felt that she needed inpatient evaluation. She is admitted to the PCU and placed on cardiac monitoring. She had an indeterminate troponin. Cardiology was consulted. She is placed on 40 twice daily of IV Lasix in addition to her spironolactone and every other day metolazone. She had good diuresis and improvement in her lower extremity edema , shortness of breath, and cough. She has severely elevated BNP and Chest x- ray consistent with congestive heart failure. She had a repeat echocardiogram done while she was here which redemonstrated her VSD and demonstrated that her right ventricular systolic pressures had increased from 76 to 109. The patient did have an increased CO2 level which is likely compensatory alkalosis with increasing diuretics however she was benefiting from further diuresis with improved breathing and edema. Cardiology felt that the patient would benefit from continued diuresis at higher doses as an outpatient after discharge. Due to the very poor prognosis and the general decline in her health is felt that hospice was appropriate. This was discussed with the patient's legal guardian who was agreeable. Hospice was consulted and she will continue to follow hospice as an outpatient from [facility]. She is placed on 80 twice daily of Lasix going forward and should continue her spironolactone and every other day metolazone. We also found that she had elevated blood sugars with an elevated A1c and she was started on metformin. Cardiology felt that she was at a very high risk for DVTs and PE given her limited mobility and severe pulmonary hypertension and she was subsequently started on Eliquis. The patient was transitioned to oral Lasix and remained stable. She was discharged back to assisted in stable condition. She will need to follow-up depending on her clinical course, with her PCP, and cardiology. This patient was seen by John Hanson PA-C under the supervision of Doctor Ring. [] Discharge Diet: 1800 Calorie Control Diet, 2000 mg Sodium Diet Discharge Activity: Return to Normal Activity Home Medications: Medications to take at Discharge Aspirin E.C. [Ecotrin] 81 mg PO DAILY@0800 #30 tab 01/09/15 asenapine 5 mg sublingual tablet 5 mg SUBLINGUAL QHS tab 08/26/17 metoprolol tartrate 100 mg tablet 100 mg PO BID 08/26/17 verapamil 40 mg tablet 60 mg PO TID tab 08/26/17 Albuterol Aerosols [Ventolin Aerosols] 2.5 mg INHALATION BID PRN PRN 01/12/18 Asenapine Maleate [Saphris] 5 mg SL QHS 01/12/18 metolazone 2.5 mg tablet 2.5 mg PO QODAY 01/12/18 potassium chloride ER 20 mEq tablet,extended release(part/cryst) 20 meq PO DAILY 01/12/18 spironolactone 25 mg tablet 25 mg PO DAILY 01/12/18 Apixaban [Eliquis] 2.5 mg PO BID #0 tablet 01/15/18 Furosemide [Lasix] 80 mg PO BID@1000,1800 tablet 01/15/18 Glucerna Shake 60 ml PO 4X/DAY liquid 01/15/18 Metformin HCl 500 mg PO DAILY #30 tablet 01/15/18 Following Prescrptions Were Given to Patient: Metformin HCl 500 mg PO DAILY #30 tablet Primary Care Physician: Costa Mcleod MD [Primary Care Provider] - Please follow up with your Primary Care Physician in: 2 weeks Please Follow Up With: Hospice, outpatient When: 1-2 weeks Please Follow Up With: Cardiology When: 1-2 weeks Disposition: Alf facility - on hospice Minutes spent on discharge:: 35 Patient Condition:: Stable Medical Necessity - Tobacco Use Smoking Status: Never smoker Tobacco Use: Non-smoker Meaningful Use Info Meaningful Use Diagnoses (Choose all that apply): CHF - CHF ROBERT/ARB ordered at discharge?: No Reason ROBERT/ARB not ordered?: Worsening renal disease Documented LVEF (%): 75 <Lizeth Ring - Last Filed: 01/15/18 14:11> Discharge Date and Diagnosis - Secondary Discharge Diagnosis Chronic Problems (Last Updated 01/12/18 @ 16:49 by NINA Bar) HTN (hypertension) (Chronic) Obesity (BMI 30.0-34.9) (Chronic) Pulmonary HTN (Chronic) VSD (ventricular septal defect) (Chronic) Schizoaffective disorder (Chronic) Diabetes (Chronic) HLD (hyperlipidemia) (Chronic) Chronic systolic congestive heart failure (Chronic) CVA (cerebral vascular accident) (Chronic) LBBB (left bundle branch block) (Chronic) Hypertrophic cardiomyopathy (Chronic) Hospital Course and Treatment Summary of Care Provided: The patient is a 72 year old F [] Code Visit Inpatient E&M: 90868 Disch Hosp
--- NOTE | 2018-01-15 13:20 | NURSING ---
No home medications for patient seen in med room locked cupboard.
== END 2018-01-15 13:18 | disposition hospice, inpatient (51) | DRG 292 ==
LOC: ED 18:02 → PCU 20:15
PROVIDERS: Internal Medicine; Physician Assistant; Admitting Provider Family Medicine; Emergency Provider Emergency Medicine; Family Provider Family Medicine; PCP Family Medicine; Visit Provider Internal Medicine
DX: I11.0 Hypertensive heart disease with heart failure (principal); Q21.0 Ventricular septal defect; E87.6 Hypokalemia; Z86.73 Personal history of transient ischemic attack (TIA), and cerebral infarction without residual deficits; Z66 Do not resuscitate; F25.9 Schizoaffective disorder, unspecified; E78.5 Hyperlipidemia, unspecified; I27.20 Pulmonary hypertension, unspecified; I50.33 Acute on chronic diastolic (congestive) heart failure; R91.1 Solitary pulmonary nodule; I44.7 Left bundle-branch block, unspecified; I42.1 Obstructive hypertrophic cardiomyopathy; Z79.899 Other long term (current) drug therapy; E11.9 Type 2 diabetes mellitus without complications
CPT/HCPCS: 36415; 36600; 71045; 71046; 80048; 80061; 80076; 82803; 82962; 83036; 83735; 83880; 84443; 84484; 85025; 85027; 93005; 93306; 97162; 97166; 97535; 97802; 99285; A4216; J1940

== ENCOUNTER → 2018-02-21 05:00 | Outpatient (REF) | payer MEDICARE, SELFPAY ==
[2018-02-21 08:54] LABS: Hematocrit 42.3 % (37-47); Hemoglobin 13.7 g/dl (12.0-15.0); Mean Corp Hgb Conc 32.4 g/gl (32-36); Mean Corpuscular Hgb 26.6 pg (27.0-32.0); Platelet Count 338 K/mm3 (150-450); RBC Distribution Width CV 20.4 % (11.6-14.6); RBC Distribution Width SD 60.6 fl (35.1-43.9); Red Blood Count 5.16 M/mm3 (4.2-5.4); White Blood Count 8.3 K/mm3 (4.4-11.0)
[2018-02-21 08:57] LABS: Scan Indicated on CBC? Y/N YES- FLAGS NOTED
[2018-02-21 09:02] LABS: Anion Gap 10 (5-15); BUN 40 mg/dL (7-18); BUN/Creat Ratio 26.1 RATIO (10-20); Calcium,Total 9.7 mg/dL (8.5-10.1); Chloride 83 mmol/L (98-107); Creatinine, Serum 1.53 mg/dL (0.55-1.02); EST Glomerular Filtration Rate 36 mL/min (>60); Est Glom Filt Rate - Afr Amer 43 mL/min (>60); Glucose 124 mg/dL (74-106); Potassium 3.4 mmol/L (3.5-5.1); Sodium Level 132 mmol/L (136-145)
[2018-02-21 09:16] LABS: Differential Comment SCANNED
== END ==
LOC: OLS.WCC 05:00
PROVIDERS: Visit Provider Family Medicine
DX: I50.9 Heart failure, unspecified (principal)
CPT/HCPCS: 36415; 80048; 85027

== ENCOUNTER → 2018-03-23 05:30 | Outpatient (REF) | payer MEDICARE, SELFPAY ==
[2018-03-23 08:08] LABS: Anion Gap 13 (5-15); BUN 47 mg/dL (7-18); BUN/Creat Ratio 30.5 RATIO (10-20); Calcium,Total 9.5 mg/dL (8.5-10.1); Chloride 83 mmol/L (98-107); Creatinine, Serum 1.54 mg/dL (0.55-1.02); EST Glomerular Filtration Rate 35 mL/min (>60); Est Glom Filt Rate - Afr Amer 43 mL/min (>60); Glucose 133 mg/dL (74-106); Potassium 3.5 mmol/L (3.5-5.1); Sodium Level 134 mmol/L (136-145)
[2018-03-23 08:17] LABS: Hematocrit 41.3 % (37-47); Hemoglobin 13.6 g/dl (12.0-15.0); Mean Corp Hgb Conc 32.9 g/gl (32-36); Mean Corpuscular Hgb 28.5 pg (27.0-32.0); Mean Corpuscular Volume 86.4 fL (81-99); Mean Platelet Vol. 9.9 fl (6.2-12.0); Platelet Count 331 K/mm3 (150-450); RBC Distribution Width CV 20.6 % (11.6-14.6); RBC Distribution Width SD 63.7 fl (35.1-43.9); Red Blood Count 4.78 M/mm3 (4.2-5.4); White Blood Count 9.5 K/mm3 (4.4-11.0)
[2018-03-23 08:25] LABS: Scan Indicated on CBC? Y/N YES- FLAGS NOTED
== END ==
LOC: OLS.WCC 05:30
PROVIDERS: Visit Provider Family Medicine
DX: I50.9 Heart failure, unspecified (principal)
CPT/HCPCS: 36415; 80048; 85027

== ENCOUNTER → 2018-04-25 04:00 | Outpatient (REF) | payer MEDICARE, SELFPAY ==
[2018-04-25 08:43] LABS: Hemoglobin 12.5 g/dl (12.0-15.0); Mean Corp Hgb Conc 32.9 g/gl (32-36); Mean Corpuscular Hgb 30.4 pg (27.0-32.0); Mean Corpuscular Volume 92.5 fL (81-99); Platelet Count 285 K/mm3 (150-450); RBC Distribution Width CV 16.7 % (11.6-14.6); Red Blood Count 4.11 M/mm3 (4.2-5.4)
[2018-04-25 08:57] LABS: Scan Indicated on CBC? Y/N NO
[2018-04-25 09:06] LABS: Anion Gap 10 (5-15); BUN 61 mg/dL (7-18); BUN/Creat Ratio 40.1 RATIO (10-20); Calcium,Total 9.6 mg/dL (8.5-10.1); Chloride 81 mmol/L (98-107); Creatinine, Serum 1.52 mg/dL (0.55-1.02); EST Glomerular Filtration Rate 36 mL/min (>60); Est Glom Filt Rate - Afr Amer 43 mL/min (>60); Glucose 130 mg/dL (74-106); Potassium 2.7 mmol/L (3.5-5.1); Sodium Level 135 mmol/L (136-145)
== END ==
LOC: OLS.WCC 04:00
PROVIDERS: Visit Provider Family Medicine
DX: I50.9 Heart failure, unspecified (principal); Z79.899 Other long term (current) drug therapy
CPT/HCPCS: 36415; 80048; 85027

== ENCOUNTER → 2018-04-28 04:00 | Outpatient (REF) | payer MEDICARE, SELFPAY ==
[2018-04-28 12:10] LABS: Potassium 3.5 mmol/L (3.5-5.1)
== END ==
LOC: OLS.WCC 04:00
PROVIDERS: Visit Provider Family Medicine
DX: I50.9 Heart failure, unspecified (principal)
CPT/HCPCS: 36415; 84132

== ENCOUNTER → 2018-05-25 05:00 | Outpatient (REF) | payer MEDICARE, SELFPAY ==
[2018-05-25 08:40] LABS: Hemoglobin 12.7 g/dl (12.0-15.0); Mean Corp Hgb Conc 32.6 g/gl (32-36); Mean Corpuscular Hgb 30.9 pg (27.0-32.0); Mean Corpuscular Volume 94.9 fL (81-99); Mean Platelet Vol. 10.1 fl (6.2-12.0); Platelet Count 329 K/mm3 (150-450); RBC Distribution Width CV 14.6 % (11.6-14.6); RBC Distribution Width SD 50.1 fl (35.1-43.9); Red Blood Count 4.11 M/mm3 (4.2-5.4)
[2018-05-25 08:45] LABS: Scan Indicated on CBC? Y/N NO
[2018-05-25 08:51] LABS: Anion Gap 9 (5-15); BUN 45 mg/dL (7-18); Calcium,Total 9.6 mg/dL (8.5-10.1); Chloride 88 mmol/L (98-107); Creatinine, Serum 1.55 mg/dL (0.55-1.02); EST Glomerular Filtration Rate 35 mL/min (>60); Est Glom Filt Rate - Afr Amer 42 mL/min (>60); Glucose 130 mg/dL (74-106); Potassium 3.1 mmol/L (3.5-5.1); Sodium Level 133 mmol/L (136-145)
== END ==
LOC: OLS.WCC 05:00
PROVIDERS: Visit Provider Family Medicine
DX: I50.9 Heart failure, unspecified (principal); Z79.899 Other long term (current) drug therapy
CPT/HCPCS: 36415; 80048; 85027

== ENCOUNTER → 2018-06-22 05:00 | Outpatient (REF) | payer SELFPAY ==
[2018-06-22 07:41] LABS: Hematocrit 38.7 % (37-47); Mean Corp Hgb Conc 33.6 g/gl (32-36); Mean Corpuscular Hgb 32.3 pg (27.0-32.0); Mean Corpuscular Volume 96.3 fL (81-99); Platelet Count 320 K/mm3 (150-450); RBC Distribution Width SD 47.9 fl (35.1-43.9); Red Blood Count 4.02 M/mm3 (4.2-5.4); Scan Indicated on CBC? Y/N NO
[2018-06-22 07:42] LABS: Anion Gap 10 (5-15); BUN 62 mg/dL (7-18); BUN/Creat Ratio 35.6 RATIO (10-20); Calcium,Total 9.4 mg/dL (8.5-10.1); Chloride 86 mmol/L (98-107); Creatinine, Serum 1.74 mg/dL (0.55-1.02); EST Glomerular Filtration Rate 31 mL/min (>60); Est Glom Filt Rate - Afr Amer 37 mL/min (>60); Glucose 142 mg/dL (74-106); Potassium 2.8 mmol/L (3.5-5.1); Sodium Level 135 mmol/L (136-145)
== END ==
LOC: OLS.WCC 05:00
PROVIDERS: Visit Provider Family Medicine
DX: I50.9 Heart failure, unspecified (principal); Z79.899 Other long term (current) drug therapy
CPT/HCPCS: 36415; 80048; 85027

== ENCOUNTER → 2018-07-22 06:45 | Outpatient (REF) | payer SELFPAY ==
[2018-07-22 08:22] LABS: Hematocrit 38.5 % (37-47); Hemoglobin 13.2 g/dl (12.0-15.0); Mean Corp Hgb Conc 34.3 g/gl (32-36); Mean Corpuscular Volume 93.4 fL (81-99); Mean Platelet Vol. 10.9 fl (6.2-12.0); Platelet Count 143 K/mm3 (150-450); RBC Distribution Width CV 13.9 % (11.6-14.6); RBC Distribution Width SD 46.1 fl (35.1-43.9); Red Blood Count 4.12 M/mm3 (4.2-5.4); White Blood Count 7.7 K/mm3 (4.4-11.0)
[2018-07-22 08:25] LABS: Scan Indicated on CBC? Y/N NO
== END ==
LOC: OLS.WCC 06:45
PROVIDERS: Visit Provider Family Medicine
DX: I50.9 Heart failure, unspecified (principal); I50.42 Chronic combined systolic (congestive) and diastolic (congestive) heart failure
CPT/HCPCS: 36415; 85027

== ENCOUNTER → 2018-07-24 05:00 | Outpatient (REF) | payer SELFPAY ==
[2018-07-24 09:02] LABS: Anion Gap 10 (5-15); BUN 48 mg/dL (7-18); BUN/Creat Ratio 27.7 RATIO (10-20); Calcium,Total 9.5 mg/dL (8.5-10.1); Chloride 84 mmol/L (98-107); Creatinine, Serum 1.73 mg/dL (0.55-1.02); EST Glomerular Filtration Rate 31 mL/min (>60); Est Glom Filt Rate - Afr Amer 37 mL/min (>60); Glucose 122 mg/dL (74-106); Sodium Level 135 mmol/L (136-145)
== END ==
LOC: OLS.WCC 05:00
PROVIDERS: Visit Provider Family Medicine
DX: I50.9 Heart failure, unspecified (principal); I50.42 Chronic combined systolic (congestive) and diastolic (congestive) heart failure
CPT/HCPCS: 36415; 80048

== ENCOUNTER → 2018-08-22 05:00 | Outpatient (REF) | payer SELFPAY ==
[2018-08-22 08:18] LABS: Hematocrit 37.8 % (37-47); Hemoglobin 12.5 g/dl (12.0-15.0); Mean Corp Hgb Conc 33.1 g/gl (32-36); Mean Corpuscular Hgb 31.8 pg (27.0-32.0); Mean Corpuscular Volume 96.2 fL (81-99); Mean Platelet Vol. 10.4 fl (6.2-12.0); Platelet Count 317 K/mm3 (150-450); RBC Distribution Width CV 14.1 % (11.6-14.6); RBC Distribution Width SD 47.6 fl (35.1-43.9); Red Blood Count 3.93 M/mm3 (4.2-5.4); White Blood Count 9.4 K/mm3 (4.4-11.0)
[2018-08-22 08:19] LABS: Scan Indicated on CBC? Y/N NO
[2018-08-22 08:27] LABS: Anion Gap 10 (5-15); BUN 33 mg/dL (7-18); Calcium,Total 9.3 mg/dL (8.5-10.1); Chloride 94 mmol/L (98-107); EST Glomerular Filtration Rate 36 mL/min (>60); Est Glom Filt Rate - Afr Amer 44 mL/min (>60); Glucose 120 mg/dL (74-106); Potassium 3.4 mmol/L (3.5-5.1); Sodium Level 136 mmol/L (136-145)
[2018-09-04 10:19] VITALS: BMI 28.3
== END ==
LOC: OLS.WCC 05:00
PROVIDERS: Visit Provider Family Medicine
DX: I50.9 Heart failure, unspecified (principal)
CPT/HCPCS: 36415; 80048; 85027

== ENCOUNTER → 2018-09-12 13:44 | Outpatient (CLI) | payer MEDICARE, MEDICAID, SELFPAY ==
[2018-09-04 10:19] VITALS: BMI 28.3
--- NOTE | 2018-09-12 13:47 | ECHOD_ITS ---
Reason For Study: CHF Procedure This was a 2D Doppler, Color Flow transthoracic echocardiogram. The study was technically difficult. Exam performed in department. Left Ventricle Normal LV size. Severe concentric left ventricular hypertrophy. Left ventricular systolic function is normal. The estimated ejection fraction is 70 %. Unable to assess diastolic dysfunction. No regional wall motion abnormalities noted. Right Ventricle Normal RV size. Normal systolic function. Atria The left atrium is severely enlarged. Normal right atrium. No doppler evidence for ASD. Mitral Valve There is moderate mitral annular calcification. Extension of the mitral annular calcification onto the posterior mitral valve leaflet. Anterior leaflet diffuse mitral valve thickening. Systolic anterior motion of the mitral valve. Mild-Moderate (1-2+) eccentric mitral valve insufficiency. Tricuspid Valve Normal tricuspid valve. Mild tricuspid valve insufficiency. Right ventricular systolic pressure estimated to be 57 mmHg. Aortic Valve Trisinus/trileaflet aortic valve. Mild focal aortic valve thickening. Pulmonic Valve The pulmonic valve is not well visualized. Mild (1+) pulmonic valve insufficiency. Great Vessels Normal sized aortic root. Pericardium/Pleural No pericardial effusion. MMode/2D Measurements & Calculations LVIDd: 3.6 cm IVSd: 1.8 cm Ao root diam: 2.7 cm LVIDs: 2.3 cm LVPWd: 1.8 cm RVDd: 2.3 cm FS: 37.9 % LAV(MOD-bp): 131.1 ml LA A4 area: 33.9 cm2 LA dimension(2D): 5.7 cm LAV(MOD-bp) Indexed: 67.6 ml/m2 LAV(MOD-sp2): 96.9 ml LAV(MOD-sp4): 155.8 ml RA A4 area: 14.7 cm2 Doppler Measurements & Calculations Lat Peak E' Semaj: 8.3 cm/sec PA V2 max: 173.6 cm/sec TR max semaj: 344.8 cm/sec PA V2 mean: 111.6 cm/sec TR max P.8 mmHg PA V2 VTI: 36.9 cm Interpretation Summary The study was technically difficult. Left ventricular systolic function is normal. The estimated ejection fraction is 70 %. Severe concentric left ventricular hypertrophy. The left atrium is severely enlarged. There is moderate mitral annular calcification. Extension of the mitral annular calcification onto the posterior mitral valve leaflet. Anterior leaflet diffuse mitral valve thickening. Systolic anterior motion of the mitral valve. Mild-Moderate (1-2+) eccentric mitral valve insufficiency. Mild tricuspid valve insufficiency. Mild focal aortic valve thickening. Mild (1+) pulmonic valve insufficiency. Right ventricular systolic pressure estimated to be 57 mmHg. Unable to assess diastolic dysfunction. Comment: Color flow doppler cannot exclude a high perimembranous VSD. Ordering Physician: Tal Fuentes Referring Physician: Costa Mcleod Performed By: Caprice Bashir, SHERRIE, RVT
== END ==
PROVIDERS: Family Provider Family Medicine; PCP Family Medicine; Referring Provider Internal Medicine Cardiovascular Disease; Visit Provider Internal Medicine Cardiovascular Disease
DX: I34.0 Nonrheumatic mitral (valve) insufficiency (principal); I50.9 Heart failure, unspecified
CPT/HCPCS: 93306

== ENCOUNTER → 2018-09-25 04:00 | Outpatient (REF) | payer SELFPAY ==
[2018-09-04 10:19] VITALS: BMI 28.3
[2018-09-25 09:00] LABS: Hemoglobin 12.7 g/dl (12.0-15.0); Mean Corp Hgb Conc 32.6 g/gl (32-36); Mean Corpuscular Hgb 31.6 pg (27.0-32.0); Mean Platelet Vol. 10.9 fl (6.2-12.0); Platelet Count 301 K/mm3 (150-450); RBC Distribution Width CV 13.8 % (11.6-14.6); RBC Distribution Width SD 47.4 fl (35.1-43.9); Red Blood Count 4.02 M/mm3 (4.2-5.4); White Blood Count 7.9 K/mm3 (4.4-11.0)
[2018-09-25 09:02] LABS: Scan Indicated on CBC? Y/N NO
[2018-09-25 09:13] LABS: Anion Gap 9 (5-15); BUN 39 mg/dL (7-18); BUN/Creat Ratio 25.2 RATIO (10-20); Calcium,Total 9.1 mg/dL (8.5-10.1); Chloride 90 mmol/L (98-107); Creatinine, Serum 1.55 mg/dL (0.55-1.02); EST Glomerular Filtration Rate 35 mL/min (>60); Est Glom Filt Rate - Afr Amer 42 mL/min (>60); Glucose 123 mg/dL (74-106); Sodium Level 134 mmol/L (136-145)
== END ==
LOC: OLS.WCC 04:00
PROVIDERS: Visit Provider Family Medicine
DX: I50.9 Heart failure, unspecified (principal); Z79.899 Other long term (current) drug therapy
CPT/HCPCS: 36415; 80048; 85027

== ENCOUNTER → 2018-10-23 04:00 | Outpatient (REF) | payer SELFPAY ==
[2018-09-04 10:19] VITALS: BMI 28.3
[2018-10-23 08:24] LABS: Hematocrit 36.7 % (37-47); Hemoglobin 11.7 g/dl (12.0-15.0); Mean Corp Hgb Conc 31.9 g/gl (32-36); Mean Corpuscular Hgb 30.6 pg (27.0-32.0); Mean Corpuscular Volume 96.1 fL (81-99); Mean Platelet Vol. 10.8 fl (6.2-12.0); Platelet Count 251 K/mm3 (150-450); RBC Distribution Width CV 13.1 % (11.6-14.6); RBC Distribution Width SD 43.9 fl (35.1-43.9); Red Blood Count 3.82 M/mm3 (4.2-5.4); Scan Indicated on CBC? Y/N NO
[2018-10-23 08:36] LABS: Anion Gap 10 (5-15); BUN 24 mg/dL (7-18); BUN/Creat Ratio 18.2 RATIO (10-20); Calcium,Total 8.8 mg/dL (8.5-10.1); Chloride 101 mmol/L (98-107); Creatinine, Serum 1.32 mg/dL (0.55-1.02); EST Glomerular Filtration Rate 42 mL/min (>60); Est Glom Filt Rate - Afr Amer 51 mL/min (>60); Glucose 108 mg/dL (74-106); Potassium 4.3 mmol/L (3.5-5.1); Sodium Level 137 mmol/L (136-145)
== END ==
LOC: OLS.WCC 04:00
PROVIDERS: Visit Provider Family Medicine
DX: I50.9 Heart failure, unspecified (principal)
CPT/HCPCS: 36415; 80048; 85027

== ENCOUNTER → 2018-11-23 05:00 | Outpatient (REF) | payer MEDICARE, SELFPAY ==
[2018-09-04 10:19] VITALS: BMI 28.3
[2018-11-23 08:43] LABS: Hematocrit 37.8 % (37-47); Hemoglobin 12.1 g/dl (12.0-15.0); Mean Corpuscular Hgb 29.4 pg (27.0-32.0); Mean Corpuscular Volume 91.7 fL (81-99); Mean Platelet Vol. 10.6 fl (6.2-12.0); Platelet Count 249 K/mm3 (150-450); RBC Distribution Width CV 13.5 % (11.6-14.6); RBC Distribution Width SD 44.7 fl (35.1-43.9); Red Blood Count 4.12 M/mm3 (4.2-5.4); White Blood Count 5.9 K/mm3 (4.4-11.0)
[2018-11-23 08:46] LABS: Scan Indicated on CBC? Y/N NO
[2018-11-23 09:04] LABS: Anion Gap 6 (5-15); BUN 33 mg/dL (7-18); BUN/Creat Ratio 27.5 RATIO (10-20); Calcium,Total 8.5 mg/dL (8.5-10.1); Chloride 103 mmol/L (98-107); EST Glomerular Filtration Rate 47 mL/min (>60); Est Glom Filt Rate - Afr Amer 57 mL/min (>60); Glucose 115 mg/dL (74-106); Potassium 4.2 mmol/L (3.5-5.1); Sodium Level 136 mmol/L (136-145)
== END ==
LOC: OLS.WCC 05:00
PROVIDERS: Visit Provider Family Medicine
DX: I50.9 Heart failure, unspecified (principal); Z79.899 Other long term (current) drug therapy
CPT/HCPCS: 36415; 80048; 85027

== ENCOUNTER → 2018-12-22 05:00 | Outpatient (REF) | payer MEDICARE, SELFPAY ==
[2018-09-04 10:19] VITALS: BMI 28.3
[2018-12-22 08:44] LABS: Hematocrit 40.3 % (37-47); Mean Corp Hgb Conc 32.3 g/gl (32-36); Mean Corpuscular Hgb 29.5 pg (27.0-32.0); Mean Corpuscular Volume 91.4 fL (81-99); Mean Platelet Vol. 10.4 fl (6.2-12.0); Platelet Count 312 K/mm3 (150-450); RBC Distribution Width SD 46.5 fl (35.1-43.9); Red Blood Count 4.41 M/mm3 (4.2-5.4); White Blood Count 7.8 K/mm3 (4.4-11.0)
[2018-12-22 08:45] LABS: Scan Indicated on CBC? Y/N NO
[2018-12-22 08:55] LABS: Anion Gap 8 (5-15); BUN 32 mg/dL (7-18); BUN/Creat Ratio 23.9 RATIO (10-20); Chloride 102 mmol/L (98-107); Creatinine, Serum 1.34 mg/dL (0.55-1.02); EST Glomerular Filtration Rate 41 mL/min (>60); Est Glom Filt Rate - Afr Amer 50 mL/min (>60); Glucose 105 mg/dL (74-106); Potassium 4.1 mmol/L (3.5-5.1); Sodium Level 139 mmol/L (136-145)
== END ==
LOC: OLS.WCC 05:00
PROVIDERS: Visit Provider Family Medicine
DX: I10 Essential (primary) hypertension (principal); Z79.899 Other long term (current) drug therapy
CPT/HCPCS: 36415; 80048; 85027

== ENCOUNTER → 2019-02-08 | Outpatient (REF) | payer MEDICARE, SELFPAY ==
[2018-09-04 10:19] VITALS: BMI 28.3
[2019-02-08 08:57] LABS: Hemoglobin A1c 6.5 % (4.2-6.3)
== END | disposition home or self-care (01) ==
LOC: OLS.WCC 07:45
PROVIDERS: Visit Provider Family Medicine
DX: E11.9 Type 2 diabetes mellitus without complications (principal)
CPT/HCPCS: 36415; 83036

== ENCOUNTER → 2019-02-19 04:30 | Outpatient (REF) | payer MEDICARE, SELFPAY ==
[2018-09-04 10:19] VITALS: BMI 28.3
[2019-02-19 07:50] LABS: Hematocrit 38.5 % (37-47); Hemoglobin 12.4 g/dl (12.0-15.0); Mean Corp Hgb Conc 32.2 g/gl (32-36); Mean Corpuscular Hgb 29.4 pg (27.0-32.0); Mean Corpuscular Volume 91.2 fL (81-99); Mean Platelet Vol. 10.4 fl (6.2-12.0); Platelet Count 246 K/mm3 (150-450); RBC Distribution Width CV 14.5 % (11.6-14.6); RBC Distribution Width SD 48.4 fl (35.1-43.9); Red Blood Count 4.22 M/mm3 (4.2-5.4); White Blood Count 6.9 K/mm3 (4.4-11.0)
[2019-02-19 07:55] LABS: Anion Gap 8 (5-15); BUN 31 mg/dL (7-18); BUN/Creat Ratio 26.3 RATIO (10-20); Calcium,Total 8.7 mg/dL (8.5-10.1); Chloride 106 mmol/L (98-107); Creatinine, Serum 1.18 mg/dL (0.55-1.02); EST Glomerular Filtration Rate 48 mL/min (>60); Est Glom Filt Rate - Afr Amer 58 mL/min (>60); Glucose 112 mg/dL (74-106); Potassium 4.5 mmol/L (3.5-5.1); Sodium Level 140 mmol/L (136-145)
[2019-02-19 08:05] LABS: Scan Indicated on CBC? Y/N NO
== END ==
LOC: OLS.WCC 04:30
PROVIDERS: Visit Provider Family Medicine
DX: I50.9 Heart failure, unspecified (principal); Z79.899 Other long term (current) drug therapy
CPT/HCPCS: 36415; 80048; 85027

== ENCOUNTER → 2019-05-21 | Outpatient (REF) | payer MEDICARE, SELFPAY ==
[2019-02-22 10:15] VITALS: BMI 30.8
[2019-05-21 07:51] LABS: Hematocrit 42.9 % (37-47); Hemoglobin 13.5 g/dL (12.0-15.0); Mean Corp Hgb Conc 31.5 g/dL (32-36); Mean Corpuscular Hgb 29.3 pg (27.0-32.0); Mean Corpuscular Volume 93.1 fL (81-99); Mean Platelet Vol. 9.8 fl (6.2-12.0); Platelet Count 276 K/mm3 (150-450); RBC Distribution Width SD 47.6 fl (35.1-43.9); Red Blood Count 4.61 M/mm3 (4.2-5.4)
[2019-05-21 08:12] LABS: Anion Gap 8 (5-15); BUN 33 mg/dL (7-18); BUN/Creat Ratio 25.2 RATIO (10-20); Calcium,Total 9.3 mg/dL (8.5-10.1); Chloride 104 mmol/L (98-107); Creatinine, Serum 1.31 mg/dL (0.55-1.02); EST Glomerular Filtration Rate 42 mL/min (>60); Est Glom Filt Rate - Afr Amer 51 mL/min (>60); Glucose 112 mg/dL (74-106); Potassium 4.3 mmol/L (3.5-5.1); Sodium Level 141 mmol/L (136-145)
== END | disposition home or self-care (01) ==
LOC: OLS.WCC 05:00
PROVIDERS: Visit Provider Family Medicine
DX: I11.0 Hypertensive heart disease with heart failure (principal); I50.9 Heart failure, unspecified
CPT/HCPCS: 36415; 80048; 85027

== ENCOUNTER → 2019-06-22 05:00 | Outpatient (REF) | payer MEDICARE, SELFPAY ==
[2019-02-22 10:15] VITALS: BMI 30.8
[2019-06-22 08:24] LABS: Hematocrit 42.7 % (37-47); Hemoglobin 13.4 g/dL (12.0-15.0); Mean Corp Hgb Conc 31.4 g/dL (32-36); Mean Corpuscular Hgb 29.3 pg (27.0-32.0); Mean Corpuscular Volume 93.4 fL (81-99); Mean Platelet Vol. 10.4 fl (6.2-12.0); Platelet Count 259 K/mm3 (150-450); RBC Distribution Width CV 13.9 % (11.6-14.6); RBC Distribution Width SD 47.8 fl (35.1-43.9); Red Blood Count 4.57 M/mm3 (4.2-5.4); White Blood Count 9.3 K/mm3 (4.4-11.0)
[2019-06-22 08:41] LABS: Anion Gap 8 (5-15); BUN 30 mg/dL (7-18); BUN/Creat Ratio 24.6 RATIO (10-20); Calcium,Total 8.9 mg/dL (8.5-10.1); Chloride 104 mmol/L (98-107); Creatinine, Serum 1.22 mg/dL (0.55-1.02); EST Glomerular Filtration Rate 46 mL/min (>60); Est Glom Filt Rate - Afr Amer 56 mL/min (>60); Glucose 118 mg/dL (74-106); Potassium 4.1 mmol/L (3.5-5.1); Sodium Level 141 mmol/L (136-145)
== END ==
LOC: OLS.WCC 05:00
PROVIDERS: Visit Provider Family Medicine
DX: I50.9 Heart failure, unspecified (principal)
CPT/HCPCS: 36415; 80048; 85027

== ENCOUNTER → 2019-08-10 05:00 | Outpatient (REF) | payer MEDICARE, SELFPAY ==
[2019-02-22 10:15] VITALS: BMI 30.8
[2019-08-10 08:52] LABS: Hemoglobin A1c 6.8 % (4.2-6.3)
== END ==
LOC: OLS.WCC 05:00
PROVIDERS: Family Provider Family Medicine; PCP Family Medicine; Visit Provider Family Medicine
DX: E11.9 Type 2 diabetes mellitus without complications (principal)
CPT/HCPCS: 36415; 83036

== ENCOUNTER → 2019-09-21 05:00 | Outpatient (REF) | payer MEDICARE, MEDICAID, SELFPAY ==
[2019-08-28 08:37] VITALS: BMI 32.4
[2019-09-21 08:18] LABS: Hemoglobin 12.6 g/dL (12.0-15.0); Mean Corp Hgb Conc 31.5 g/dL (32-36); Mean Corpuscular Hgb 29.8 pg (27.0-32.0); Mean Corpuscular Volume 94.6 fL (81-99); Mean Platelet Vol. 9.6 fl (6.2-12.0); Platelet Count 292 K/mm3 (150-450); Red Blood Count 4.23 M/mm3 (4.2-5.4)
[2019-09-21 08:41] LABS: Anion Gap 4 (5-15); BUN 28 mg/dL (7-18); BUN/Creat Ratio 22.4 RATIO (10-20); Calcium,Total 9.1 mg/dL (8.5-10.1); Chloride 103 mmol/L (98-107); Creatinine, Serum 1.25 mg/dL (0.55-1.02); EST Glomerular Filtration Rate 45 mL/min (>60); Est Glom Filt Rate - Afr Amer 54 mL/min (>60); Glucose 112 mg/dL (74-106); Potassium 4.4 mmol/L (3.5-5.1); Sodium Level 135 mmol/L (136-145)
== END ==
LOC: OLS.WCC 05:00
PROVIDERS: PCP Family Medicine; Visit Provider Family Medicine
DX: I50.9 Heart failure, unspecified (principal); Z79.899 Other long term (current) drug therapy
CPT/HCPCS: 36415; 80048; 85027

== ENCOUNTER → 2019-11-12 05:00 | Outpatient (REF) | payer MEDICARE, MEDICAID, SELFPAY ==
[2019-08-28 08:37] VITALS: BMI 32.4
[2019-11-12 07:12] LABS: Hematocrit 39.3 % (37-47); Hemoglobin 12.4 g/dL (12.0-15.0); Mean Corp Hgb Conc 31.6 g/dL (32-36); Mean Corpuscular Hgb 28.9 pg (27.0-32.0); Mean Corpuscular Volume 91.6 fL (81-99); Mean Platelet Vol. 10.2 fl (6.2-12.0); Platelet Count 282 K/mm3 (150-450); RBC Distribution Width CV 15.5 % (11.6-14.6); RBC Distribution Width SD 50.8 fl (35.1-43.9); Red Blood Count 4.29 M/mm3 (4.2-5.4); White Blood Count 13.2 K/mm3 (4.4-11.0)
[2019-11-12 07:23] LABS: Anion Gap 8 (5-15); BUN 65 mg/dL (7-18); Calcium,Total 9.7 mg/dL (8.5-10.1); Chloride 99 mmol/L (98-107); Creatinine, Serum 2.32 mg/dL (0.55-1.02); EST Glomerular Filtration Rate 22 mL/min (>60); Est Glom Filt Rate - Afr Amer 27 mL/min (>60); Glucose 173 mg/dL (74-106); Potassium 4.1 mmol/L (3.5-5.1); Sodium Level 139 mmol/L (136-145)
[2019-11-12 07:54] LABS: BNP,B-Type NATRIURETIC PEPTIDE 2906.1 pg/mL (0-100)
== END ==
LOC: OLS.WCC 05:00
PROVIDERS: PCP Family Medicine; Referring Provider Family Medicine; Visit Provider Family Medicine
DX: I50.9 Heart failure, unspecified (principal)
CPT/HCPCS: 36415; 80048; 83880; 85027